=== PATIENT | female | born 1965 | race Caucasian/White ===

== ENCOUNTER → 2018-03-30 14:37 | Outpatient (CLI) | payer OTHER, SELFPAY ==
[2018-03-30 17:02] LABS: Estradiol < 11.0 pg/mL; Free T3 2.9 pg/mL (2.18-3.98); T4 Free Direct 0.81 ng/dL (0.76-1.46); Thyroid Stim Hormone (TSH) 2.77 uIU/mL (0.358-3.74)
[2018-04-03 13:15] LABS: DHEA Sulfate 45.5 ug/dL (41.2-243.7)
== END ==
PROVIDERS: Family Provider Family Medicine; PCP Family Medicine; Visit Provider Specialist
DX: N95.1 Menopausal and female climacteric states (principal); R53.81 Other malaise; E03.8 Other specified hypothyroidism
CPT/HCPCS: 36415; 82627; 82670; 84144; 84403; 84439; 84443; 84481; 82626

== ENCOUNTER → 2018-05-08 15:11 | Outpatient (CLI) | payer OTHER, SELFPAY ==
[2018-05-08 16:13] LABS: Estradiol 17.9 pg/mL
== END ==
PROVIDERS: Family Provider Family Medicine; PCP Family Medicine
DX: N95.1 Menopausal and female climacteric states (principal)
CPT/HCPCS: 36415; 82670; 84144; 84403

== ENCOUNTER 2018-05-14 22:50 | Emergency (ER) | payer OTHER, SELFPAY ==
[2018-05-14 22:51] VITALS: BP 158/85; PULSE 76; RESP 18; TEMP 37.1; O2SAT 97; BMI 34.3
[2018-05-15] MEDS: Tetracaine 0.5% Ophthalmic Bottle 2 DRP RIGHT EYE (00:07)
--- NOTE | 2018-05-15 01:12 | ED.DCSUM_ITS ---
History of Present Illness Chief Complaint: Eye Problem Informant: Patient Onset: Hours - 1.5 [place] Context: Sudden Onset Timing: Continuous Quality: FB sens Location: R eye Current Severity: Severe Maximum Severity: Severe Worsened by: n/a Relieved by: n/a Associated Symptoms: watering, making it a little blurry Narrative: Just had PRK OU about 2 wks ago, fully healed. Prior similar symptoms: No Past Medical History - Allergies and Home Meds Allergies/Adverse Reactions: Allergies ciprofloxacin [From Cipro] Allergy (Verified 05/14/18 22:54) Rash ciprofloxacin HCl [From Cipro] Allergy (Verified 05/14/18 22:54) Rash prochlorperazine edisylate [From Compazine] Allergy (Verified 05/14/18 22:54) Anaphylaxis prochlorperazine maleate [From Compazine] Allergy (Verified 05/14/18 22:54) Anaphylaxis Sulfa (Sulfonamide Antibiotics) Allergy (Verified 05/14/18 22:54) Rash Primary Care Physician: Darwin Feldman DO [Primary Care Provider] - Smoking Status: Never smoker Review of Systems Eyes: Reports: Blurred vision - right - due to watering, - - R eye pain/FB sens. Denies: Diplopia Physical Exam Vital Signs/Narrative: Vital Signs Temp Pulse Resp BP Pulse Ox 05/14/18 22:51 98.8 F 76 18 158/85 H 97 General: Well nourished, Well developed, - - nad Head: Normocephalic, Atraumatic Eyes: Perrl, EOMI, - - Injected right conjunctive. No gross foreign body visible grossly. Eyelid everted, no lesions or foreign bodies. On slit-lamp exam, there was a piece of mucus centrally on the cornea that did not light up with fluorescein dye, and there are no corneal areas of dye uptake. There was intermittently visible a small fiber to the right of the cornea, that was only visible when it was lying against the eye in context of the dye. It was able to be gently removed. There are several meibomian glands that appear slightly inflamed in this area, but there is no hordeolum or significant tenderness. The anterior chamber is deep and quiet, no hyphema or hypopyon. No cell or flare. Skin: Normal color, No rash Neurological: Alert, Oriented x3, Cranial nerves II-XII grossly intact, Normal Strength, Normal Sensation Psychological: Normal affect Diagnostic/Tx/Re-eval - Medical Decision Making A small foreign body was removed, it is unknown if this is what was causing her symptoms or not. Her cornea is otherwise clear and normal-appearing, deep and quiet, without dye uptake. Tetracaine resolved her discomfort temporarily. She was given a couple more drops prior to discharge and advised to follow-up with her surgeon tomorrow if able. Procedures Procedure(s): Foreign body removal right eye ED Disposition - Plan for ED Patient: Disposition: Home or Assisted Living Chief Complaint: Eye Problem Diagnosis: Foreign body of right eye Instructions: ED Foreign Body Cornea Referrals: Darwin Feldman DO [Primary Care Provider] - Lino Cordon MD [STAFF PHYSICIAN] - 1 Day for another exam
[2018-05-15 01:29] VITALS: RESP 18; O2SAT 98
== END 2018-05-15 01:30 | disposition home or self-care (01) ==
PROVIDERS: Emergency Provider Emergency Medicine; Family Provider Family Medicine; PCP Family Medicine
DX: T15.01XA Foreign body in cornea, right eye, initial encounter (principal); X58.XXXA Exposure to other specified factors, initial encounter; Y93.9 Activity, unspecified; Y92.9 Unspecified place or not applicable; Y99.9 Unspecified external cause status
CPT/HCPCS: 99282

== ENCOUNTER → 2018-10-10 07:16 | Outpatient (CLI) | payer OTHER, SELFPAY ==
[2018-10-10 08:05] LABS: Estradiol 23.5 pg/mL
[2018-10-10 08:09] LABS: Progesterone Level 0.08 ng/mL (See Comment)
== END ==
PROVIDERS: Family Provider Family Medicine; PCP Family Medicine
DX: N95.1 Menopausal and female climacteric states (principal)
CPT/HCPCS: 36415; 82670; 84144; 84403

== ENCOUNTER 2020-02-17 09:56 | Emergency (ER) | payer OTHER, SELFPAY ==
[2020-02-17 09:58] VITALS: BP 149/90; PULSE 86; RESP 16; TEMP 36.3; O2SAT 97; BMI 36.7
--- NOTE | 2020-02-17 10:19 | ED.VISSUMM ---
- ER Visit Summary Date of Service: 02/17/20 Chief Complaint: [Left facial swelling] History of Present Illness: The patient is a 54 F presents to the emergency department complaint of left-sided facial swelling that developed yesterday. Patient states she has had similar episodes x4 in the past with stone in the salivary duct. Patient denies any fevers. She denies any dental pain or dental trauma. She is never required any type of intervention other than antibiotics typically clear the issue. Patient has history of high cholesterol and GERD.] Physical Examination: [HEENT-PERRLA, EOMI. Cranial nerves II through XII grossly intact. TMs clear. Mucous membranes moist. No adenopathy. Patient has left-sided facial swelling over the left cheek with some mild tenderness along the cheek and the area of the parotid duct. Patient has no evidence of erythema or facial cellulitis. No dental tenderness on exam. Cardiovascular-regular rate and rhythm without murmur or ectopy Lungs-clear to auscultation, chest wall stable without crepitus or subcu emphysema Abdomen-normoactive bowel sounds, soft, nontender, no rebound or rigidity, no peritoneal signs. Extremities-intact ?4, normal range of motion, normal pulses, atraumatic] Test Results: [None indicated] Emergency Department Course and Treatment: [Patient received Augmentin 875 p.o.] Treatment Plan: [Patient will be treated with Augmentin. She is advised to eat lemon drop candy. Patient will be given referral to ENT for follow-up if symptoms do not improve. Patient advised to return if increased pain, redness, swelling, fever, or condition should worsen anyway.] Disposition: [Discharged home in stable condition] Impression: [Sialoadenitis] This note was generated with [employer] dictation software. It may contain incorrect words, spelling, and punctuation that were not noted in review of the chart prior to signing ED Disposition - Plan for ED Patient: Referrals: Darwin Feldman DO [Primary Care Provider] -
--- NOTE | 2020-02-17 10:21 | ED.DEP ---
ED Disposition - Plan for ED Patient: Instructions: ED PAROTID DUCT OBSTRUCTION Prescriptions: Amox/Clavulanate Tablet [Augmentin Tablet] 875 mg PO Q12H #20 tab Prescription Printed Referrals: Darwin Feldman DO [Primary Care Provider] - Shawn uRff MD [STAFF PHYSICIAN] - 3-5 Days
[2020-02-17] MEDS: Amox/Clavulanate 875 MG Tablet PO (10:44)
[2020-02-17 10:46] VITALS: RESP 17
== END 2020-02-17 10:47 | disposition home or self-care (01) ==
LOC: ED 10:37
PROVIDERS: Emergency Provider Emergency Medicine; PCP Family Medicine
DX: K11.20 Sialoadenitis, unspecified (principal); E78.00 Pure hypercholesterolemia, unspecified; K21.9 Gastro-esophageal reflux disease without esophagitis; Z79.899 Other long term (current) drug therapy
CPT/HCPCS: 99283

== ENCOUNTER 2020-04-10 10:27 | Emergency (ER) | payer OTHER, SELFPAY ==
[2020-04-10 10:28] VITALS: BP 155/60; PULSE 92; RESP 14; TEMP 36.2; O2SAT 98; BMI 34.8
--- NOTE | 2020-04-10 10:43 | ED.VIS.GEN ---
History of Present Illness Chief Complaint: Upper Extremity Injury Informant: Patient Onset: Days Context: Sudden Onset Timing: Continuous Current Severity: Moderate Maximum Severity: Moderate Narrative: Patient is a 54-year-old female is otherwise healthy that presents to the emergency department left shoulder injury. She states on Tuesday, she was walking outdoors on her back deck. She states the stairs were wet. She slipped and fell. She struck her scapular area on the left and elbow which she states jammed everything up into my shoulder. She states that on Tuesday she was mildly sore. Over the past 2 days, however her pain is worsened. She states any range of motion of the shoulder causes pain. She did not strike her head. She denies loss of consciousness. She is otherwise been in her normal state of health. Prior similar symptoms: No Recent Illness/Hospitalization: No Past Medical History - Allergies and Home Meds Allergies/Adverse Reactions: Allergies ciprofloxacin [From Cipro] Allergy (Verified 04/10/20 10:31) Rash ciprofloxacin HCl [From Cipro] Allergy (Verified 04/10/20 10:31) Rash prochlorperazine edisylate [From Compazine] Allergy (Verified 04/10/20 10:31) Anaphylaxis prochlorperazine maleate [From Compazine] Allergy (Verified 04/10/20 10:31) Anaphylaxis Sulfa (Sulfonamide Antibiotics) Allergy (Verified 04/10/20 10:31) Rash Primary Care Physician: Darwin Feldman DO [Primary Care Provider] - Prior records reviewed: Yes Past Medical History: - - Reviewed and noncontributory Surgical History: noncontributory Smoking Status: Never smoker Review of Systems General: Denies: Chills, Fever, Sweats Eyes: Denies: Visual changes - bilaterally, Diplopia ENT: Denies: Rhinorrhea, Sore throat Cardiovascular: Denies: Chest pain, Palpitations Respiratory: Denies: Dyspnea, Cough, Dyspnea on exertion Gastrointestinal: Denies: Abdominal pain, Nausea, Vomiting, Diarrhea, Melena, Hematochezia Genitourinary: Denies: Dysuria, Hematuria, Frequency Musculoskeletal: Reports: Arthralgias, Extremity Pain. Denies: Back pain Skin: Denies: Rash, Wounds Neurological: Denies: Headache, Weakness, Numbness Physical Exam Vital Signs/Narrative: Vital Signs Temp Pulse Resp BP Pulse Ox 04/10/20 10:28 97.2 F L 92 14 155/60 H 98 Inital Vital Signs reviewed: Yes General: Well nourished, Well developed, No Acute Distress Head: Normocephalic, Atraumatic Eyes: Perrl, EOMI ENT: Moist mucous membranes, No rhinorrhea Neck: Supple, Nontender Cardiovascular: Regular rate, Regular rhythm, No murmurs Respiratory: No distress, CTA bilaterally, Chest nontender Abdomen: Soft, Nontender, Nondistended, Normal bowel sounds Back: Nontender, Normal Inspection Extremities: No edema, Tenderness - Tenderness over left shoulder. Pain with abduction and internal rotation. No laxity. Normal pulses. Axillary nerve preserved. Skin: Normal color, No rash Neurological: Alert, Oriented x3, Cranial nerves II-XII grossly intact, Normal Strength, Normal Sensation Psychological: Normal affect, Normal Mood Diagnostic/Tx/Re-eval - Medical Decision Making Patient presents with pain in her left shoulder after fall. She also some pain in her ribs. She is not hypoxic or tachypneic. Plain films were obtained of the ribs and of the shoulder. There is evidence of rib fracture or pneumothorax. The shoulder is well approximated. She does appear to have a linear nondisplaced fracture through the body of the scapula. Patient will be placed in a sling. She will be given a short course of analgesics and outpatient orthopedic follow-up. I did review results with the patient she is comfortable with this plan of care. Impression 1. Mechanical fall 2. Closed left scapular fracture ED Disposition - Plan for ED Patient: Instructions: ED FRACTURE Glen[place] of Scapula, Shoulder Blade or Collarbone Fracture Prescriptions: Hydrocodone Bitart/Apap 5-325 [[place] 5MG-325MG] 1 tab PO Q6H PRN PRN 3 Days #12 tab PRN Reason: Pain Prescription Printed Referrals: Hebert Mejía DO [STAFF PHYSICIAN] -
--- NOTE | 2020-04-10 11:18 | RAD_ITS ---
STUDY: X-RAY - LEFT SHOULDER REASON FOR EXAM: Female, 54 years old. FELL DELISA- LANDED ON LEFT SIDE AND BACK. LATERAL TO MID BACK/RIB/SCAPULA PAIN TECHNIQUE: 4 view(s) of the shoulder. COMPARISON: None. FINDINGS: Normal glenohumeral articulation. Normal acromioclavicular joint. Normal acromion. Nondisplaced fracture through the mid body of the scapula. Normal humeral head and visualized proximal humerus. The soft tissue structures are unremarkable. Normal visualized pulmonary apex. RAD/Shoulder min 2 Views IMPRESSION: Nondisplaced fracture through the mid body of the scapula. Electronically Signed: Charles Yap, at 11:52 EDT , Service support ,
--- NOTE | 2020-04-10 11:18 | RAD_ITS ---
STUDY: X-RAY - UNILATERAL RIBS ( LEFT ) WITH CHEST REASON FOR EXAM: Female, 54 years old. FELL DELISA- LANDED ON LEFT SIDE AND BACK. LATERAL TO MID BACK/RIB/SCAPULA PAIN TECHNIQUE - RIBS: 2 view(s) of the ribs. TECHNIQUE - CHEST: Single PA view of the chest. COMPARISON: None. FINDINGS - RIBS: Normal visualized ribs without a demonstrated fracture. FINDINGS - CHEST: The lungs are clear and expanded. There is no demonstrated pleural abnormality. Normal size heart. Normal mediastinum and tierra. Normal visualized pulmonary arteries. Normal visualized aortic arch and descending thoracic aorta. Normal visualized thoracic spine. Normal visualized ribs, clavicles, and shoulders. There is no demonstrated abnormality of the visualized soft tissue structures of the upper abdomen. RAD/Ribs Uni Min 3V w/PA Chest IMPRESSION: RIBS: Normal x-ray examination of the ribs. CHEST: Normal x-ray examination of the chest. Electronically Signed: Charles Yap, at 11:51 EDT , Service support ,
[2020-04-10 12:15] VITALS: BP 148/87; PULSE 88; RESP 17; O2SAT 98
== END 2020-04-10 12:16 | disposition home or self-care (01) ==
LOC: ED 10:42
PROVIDERS: Emergency Provider Emergency Medicine; PCP Family Medicine
DX: S42.115A Nondisplaced fracture of body of scapula, left shoulder, initial encounter for closed fracture (principal); R07.81 Pleurodynia; W10.9XXA Fall (on) (from) unspecified stairs and steps, initial encounter; Y93.01 Activity, walking, marching and hiking; Y92.008 Other place in unspecified non-institutional (private) residence as the place of occurrence of the external cause; Y99.9 Unspecified external cause status; Z79.899 Other long term (current) drug therapy
CPT/HCPCS: 71101; 73030; 99283

== ENCOUNTER → 2020-10-03 13:24 | Outpatient (CLI) | payer OTHER, SELFPAY | PROVIDERS: PCP Family Medicine; Visit Provider Family Medicine | DX: R30.0 Dysuria (principal) | CPT/HCPCS: 87077; 87086; 87088; 87186 ==

== ENCOUNTER 2021-03-11 09:31 | Observation (INO) | payer BC, OTHER, SELFPAY ==
[2021-03-11] VITALS (8 sets, daily range): BP systolic 118–149; BP diastolic 69–91; PULSE 66–87; RESP 16–18; TEMP 36.6–36.8; O2SAT 95–100; BMI 32.1; BMI 32.3
--- NOTE | 2021-03-11 09:51 | US_ITS ---
STUDY: ABDOMINAL ULTRASOUND - RIGHT UPPER QUADRANT REASON FOR VISIT: Female, 55 years old PAIN-rt sided with nausea TECHNIQUE: Ultrasound evaluation of the right upper quadrant was performed with real-time and static gill-scale imaging. TECHNICAL QUALITY: Adequate. COMPARISON: None. FINDINGS: Liver: The liver is enlarged and measures 19.8 cm. There is normal echogenicity of the liver. The bile ducts are within normal limits. There is hepatic color flow. The direction of portal flow is hepatopetal. There is no demonstrated mass lesion. Gallbladder: There is a contracted gallbladder. The gallbladder wall is thickened and measures 9 mm. There is a positive sonographic Deshpande''s sign. There is a small amount of pericholecystic fluid. There are no gallstones. Findings suggestive of a 3 mm gallbladder polyp. Common Bile Duct (C.B.D.): The common bile duct measures 4 mm. Pancreas: Normal size of the head, body and tail of the pancreas. There is normal echogenicity of the pancreas. There is no demonstrated pancreatic mass or cyst. Right Kidney: Normal size of the right kidney. The right kidney measures 9.9 cm x 5 cm x 4.4 cm. Normal renal cortex. The right cortex measures 1.3 cm. There is no demonstrated renal mass or cyst. There is no right hydronephrosis. US/Gallbladder IMPRESSION: Hepatomegaly. Diffusely thickened gallbladder wall with the mild degree of pericholecystic fluid. Findings suggestive of a gallbladder polyp. Electronically Signed: Charles Yap MD at 11:02 EDT , Service support ,
--- NOTE | 2021-03-11 09:52 | ED.VIS.GI ---
HPI HPI - GI History of Present Illness Chief Complaint: Nausea/Vomiting Informant: patient Abdominal Pain/Flank Pain Onset: Weeks (1) Context: Gradual Onset Timing: Continuous and Waxes and wanes Quality: Aching Location: RUQ Current Severity: Moderate Maximum Severity: Moderate Worsened by: Food (At times) Relieved by: Nothing Nausea/Vomiting/Emesis GI Symptom: Positive for Nausea; Negative for Vomiting Onset: Weeks (1) Diarrhea/Melena/Hematochezia GI Symptom: Negative for Diarrhea, Melena and Hematochezia Associated Symptoms Associated Symptoms: Positive for - ([place] discolored urine for about a week); Negative for Dysuria, Frequency and Urgency Narrative Narrative: Patient has been having mostly nausea and decreased appetite for 1 week or so, with abdominal pain being a less prominent symptom but when it occurs it is in the right upper quadrant and wraps around to the right flank and into the mid back as it is now. She ate a yogurt bar this morning which seemed to flared up. She tried to get into her doctor soon after the onset of the symptoms but was not able to be seen until 2 days ago, she had blood work done and was called about it this morning that her liver enzymes and bilirubin were all elevated and she should come to the emergency department out of concern for gallstones. Patient denies using any alcohol recently. [facility] Medical History Anxiety GERD (gastroesophageal reflux disease) Hyperlipidemia Hypertension Home Medications atorvastatin 10 mg PO DAILY 02/17/20 [History Last Taken Unknown] bupropion HCl 150 mg PO DAILY 02/17/20 [History Last Taken Unknown] buspirone 15 mg PO DAILY 02/17/20 [History Last Taken Unknown] diltiazem HCl 180 mg PO DAILY 02/17/20 [History Last Taken Unknown] fluoxetine 20 mg PO DAILY 02/17/20 [History Last Taken Unknown] albuterol sulfate 2 puff INHALATION Q6H PRN PRN 03/11/21 [History Last Taken Unknown] Allergy/AdvReac Type Severity Reaction Status Date / Time ciprofloxacin [From Cipro] Allergy Rash Verified 03/11/21 09:32 ciprofloxacin HCl Allergy Rash Verified 03/11/21 09:32 [From Cipro] prochlorperazine edisylate Allergy Anaphylaxis Verified 03/11/21 09:32 [From Compazine] prochlorperazine maleate Allergy Anaphylaxis Verified 03/11/21 09:32 [From Compazine] Sulfa (Sulfonamide Allergy Rash Verified 03/11/21 09:32 Antibiotics) no surgical history Social History Smoking Status: Never smoker ROS ROS ED Constitutional Constitutional ED: Denies chills or fever(s) Eyes Eyes: Denies change in vision or diplopia ENT ENT ED: Denies rhinorrhea or sore throat Cardiovascular Cardiovascular: Denies chest pain or palpitations Respiratory/Chest Respiratory/Chest: Denies cough or dyspnea Gastrointestinal Gastrointestinal: Reports as per HPI, abdominal pain and nausea; Denies diarrhea or vomiting Genitourinary Genitourinary ED: Reports as per HPI; Denies dysuria or hematuria Musculoskeletal Musculoskeletal: Reports back pain; Denies neck pain Integumentary Denies abscess or rash Neurologic Neurologic: Denies headache(s), paresthesias or weakness Psychiatric Psychiatric: Denies anxiety or suicidal thoughts EXAM Physical Exam Const Vital Signs: 03/11/21 09:33 03/11/21 11:21 Temperature 97.9 F 98.2 F Temperature Source Temporal Oral Pulse Rate 87 79 Respiratory Rate 17 16 Blood Pressure 118/81 H 134/69 H Blood Pressure Mean 93 90 Pulse Ox 96 97 Oxygen Delivery Method Room Air Room Air Positive well nourished and well developed General Appearance ED: well developed and NAD HEENT Reports moist mucous membranes normocephalic and atraumatic Eyes PERRL and EOMs intact bilaterally General Eye ED: Yes scleral icterus Neck full ROM and supple Resp normal respiratory effort and clear to auscultation bilaterally Cardio regular rate, regular rhythm and no murmurs GI non-distended Auscultation: normoactive bowel sounds Palpation: soft and tender RUQ and Deshpande's sign; Negative for rebound tenderness present Back/Spine no CVA tenderness General Back: other FROM Extremity normal to inspection General Extremety ED: Negative for edema, pulses abnormal or tenderness General Extremity: Negative for edema or pulses abnormal Neuro oriented x3, CN's II-XII intact bilaterally and no sensory deficits noted Sensorium / Orientation: awake and alert Motor Exam: strength 5/5 throughout Skin no rashes or lesions noted, no wounds and no jaundice MDM MDM MDM Narrative Medical decision making narrative: Patient has very elevated liver enzymes as noted below. Lipase is normal. I obtained an ultrasound of the right upper quadrant, there is pericholecystic fluid without any gallstones present. I discussed with Dr. Caldera, he suggest this is more likely to be a pattern of hepatitis rather than a primary gallbladder issue, and further medical work-up and treatment is indicated at this time, not surgery or ERCP. Will discuss with medicine for admission. Lab Data Attestation: I reviewed the patient's lab results. Labs: Laboratory Results - last 24 hr 03/11/21 03/11/21 09:55 09:55 WBC 10.2 RBC 4.34 Hgb 12.7 Hct 36.9 L MCV 85.0 MCH 29.3 MCHC 34.4 RDW Std Deviation 49.7 H RDW Coeff of Kaitlin 16.7 H Plt Count 433 MPV 9.4 Immature Gran % (Auto) 0.600 Neut % (Auto) 74.5 H Lymph % (Auto) 15.9 L [place] % (Auto) 8.0 Eos % (Auto) 0.9 Baso % (Auto) 0.1 Absolute Neuts (auto) 7.6 Absolute Lymphs (auto) 1.62 Nucleated RBC % 0 Sodium 137 Potassium 3.9 Chloride 103 Carbon Dioxide 24.0 Anion Gap 10 BUN 12 Creatinine 0.96 Estim Creat Clear Calc 55.83 Est GFR (MDRD) Af Amer 77 Est GFR (MDRD) Non-Af 64 BUN/Creatinine Ratio 12.6 Glucose 106 Calcium 9.0 Total Bilirubin 5.40 H AST 2077 H ALT 2927 H Alkaline Phosphatase 735 H Total Protein 7.5 Albumin 2.9 L Globulin 4.6 H Albumin/Globulin Ratio 0.6 L Lipase 65 L Radiography Diagnostic Testing: Radiology Impression Gallbladder Ultrasound 03/11/21 09:51 IMPRESSION: Hepatomegaly. Diffusely thickened gallbladder wall with the mild degree of pericholecystic fluid. Findings suggestive of a gallbladder polyp. Electronically Signed: Charles Yap MD at 11:02 EDT , Service support , Discharge Plan Dx/Rx/DC Orders Clinical Impression: Acute hepatitis Disposition Disposition: Acute Care Hospital [facility] Discharge Date/Time: 03/11/21 12:11
[2021-03-11 10:01] LABS: Absolute Lymphocyte Count 1.62 X10^3/uL (0.83-4.51); Absolute Neutrophil Count 7.6 X10^3/uL (2.0-7.7); Basophil# 0.01 X10^3/uL; Basophil% 0.1 % (0-1); Eosinophil# 0.09 X10^3/uL; Eosinophils% 0.9 % (0-5); Hematocrit 36.9 % (37-47); Hemoglobin 12.7 g/dL (12.0-15.0); Lymphocyte # 1.62 X10^3/ul (0.83-4.51); Lymphocyte % 15.9 % (19-41); Mean Corp Hgb Conc 34.4 g/dL (32-36); Mean Corpuscular Hgb 29.3 pg (27.0-32.0); Mean Platelet Vol. 9.4 fl (6.2-12.0); Monocyte# 0.82 X10^3/uL; NRBC Flagged by Analyzer 0 % (0-5); Neutrophil % 74.5 % (47-70); Platelet Count 433 K/mm3 (150-450); RBC Distribution Width CV 16.7 % (11.6-14.6); RBC Distribution Width SD 49.7 fl (35.1-43.9); Red Blood Count 4.34 M/mm3 (4.2-5.4); White Blood Count 10.2 K/mm3 (4.4-11.0)
[2021-03-11] MEDS: Ondansetron 4 MG/2 ML Vial IV ×3 (10:02→21:57)
[2021-03-11] MEDS: Ketorolac 15 MG/ML Vial IV (10:02)
[2021-03-11] MEDS: Morphine 4 MG/ML Syringe IV (10:02)
[2021-03-11 10:41] LABS: ALB/GLOB Ratio 0.6 RATIO (0.9-2.4); AST(SGOT) 2077 U/L (15-37); Alanine Aminotransfer ALT/SGPT 2927 U/L (13-56); Albumin, Serum 2.9 g/dL (3.2-5.0); Alkaline Phosphatase 735 U/L (45-117); Anion Gap 10 (5-15); BUN 12 mg/dL (7-18); BUN/Creat Ratio 12.6 RATIO (10-20); Chloride 103 mmol/L (98-107); Creatinine, Serum 0.96 mg/dL (0.55-1.02); EST Glomerular Filtration Rate 64 mL/min (>60); Est Glom Filt Rate - Afr Amer 77 mL/min (>60); Estimated Creatinine Clearance 55.83 ml/min; Globulin 4.6 g/dL (2.2-4.2); Glucose 106 mg/dL (74-106); Lipase 65 U/L (73-393); Potassium 3.9 mmol/L (3.5-5.1); Protein, Total 7.5 g/dL (6.4-8.2); Sodium Level 137 mmol/L (136-145)
[2021-03-11] MEDS: 0.9% Normal Saline 1,000 ML 125 ML IV ×2 (10:42→20:03)
--- NOTE | 2021-03-11 11:12 | HP.PCM.HOS_ITS ---
HPI - General General Date of Admission: 03/11/21 HPI Narrative NIEVES RAMEY, is a 55 F who presents via the ED on 03/11/2021 with a complaint of abdominal pain, nausea and vomiting. SHe had been having these symptoms for about a week, with associated decreased appetite. Abdominal pain was episodic, and occurred in her right upper quadrant whne it did occur. She saw her PCp 2 days ago, and had bloodwork done. Her PCP called her today that her liver enzymes were markedly elevated, so she was asked to come in to the ED. She does not have a history of any gallbladder problems and does not have a history of any hepatitis or any other liver pathology. She denied any recent alcohol use and denied any fever or chills. She ate a yogurt about this morning which seemed to cause her symptoms to flareup. Review of systems otherwise negative. Vitals in the ED showed blood pressure of 118/81, pulse rate of 87 and respiratory rate of 17 with temperature of 97.9 and she was saturating at 96% on room air. CBC showed hemoglobin of 12.7 with WBC of 10.2 and platelets of 433. Chemistry showed sodium of 137 and creatinine of 0.96. Total bilirubin was 5.4 and AST was 2077, ALT was 2927 and ALP was 735. Lipase was 65. Gallbladder ultrasound showed hepatomegaly and diffusely thickened gallbladder wall with mild degree of pericholecystic fluid and findings suggestive of a gallbladder polyp. Per ED physician, he spoke to general surgery and general surgeon thought that this was an acute hepatitis feature and not an acute gallbladder problem. Patient is therefore being admitted to be managed for acute hepatitis of unclear etiology. [facility] Medical History Anxiety GERD (gastroesophageal reflux disease) Hyperlipidemia Hypertension Home Medications atorvastatin 10 mg PO DAILY 02/17/20 [History Last Taken Unknown] bupropion HCl 150 mg PO DAILY 02/17/20 [History Last Taken Unknown] buspirone 15 mg PO DAILY 02/17/20 [History Last Taken Unknown] diltiazem HCl 180 mg PO DAILY 02/17/20 [History Last Taken Unknown] fluoxetine 20 mg PO DAILY 02/17/20 [History Last Taken Unknown] albuterol sulfate 2 puff INHALATION Q6H PRN PRN 03/11/21 [History Last Taken Unknown] Allergy/AdvReac Type Severity Reaction Status Date / Time ciprofloxacin [From Cipro] Allergy Rash Verified 03/11/21 09:32 ciprofloxacin HCl Allergy Rash Verified 03/11/21 09:32 [From Cipro] prochlorperazine edisylate Allergy Anaphylaxis Verified 03/11/21 09:32 [From Compazine] prochlorperazine maleate Allergy Anaphylaxis Verified 03/11/21 09:32 [From Compazine] Sulfa (Sulfonamide Allergy Rash Verified 03/11/21 09:32 Antibiotics) Social History Smoking Status: Never smoker ROS Constitutional Constitutional: Reports anorexia, fatigue and malaise; Denies change in weight, chills, fever(s) or weakness ENT HEENT: Denies dysphagia, headache(s), nasal congestion or nasal discharge Cardiovascular Cardiovascular: Denies chest pain, edema, lightheadedness, orthopnea, palpitations or rapid heart rate Respiratory/Chest Respiratory/Chest: Denies cough, dyspnea, productive cough, shortness of breath at rest or shortness of breath with exertion Gastrointestinal Gastrointestinal: Reports abdominal pain, nausea and vomiting; Denies coffee ground emesis, constipation, diarrhea, dyspepsia, hematemesis, hematochezia, l oose stools or melena Genitourinary Genitourinary: Denies burning urination, difficulty urinating, dysuria or urinary frequency Musculoskeletal Musculoskeletal: Denies arthralgias or back pain Neurologic Neurologic: Reports abnormal gait; Denies confusion, dizziness, focal weakness, numbness or seizure-like activity Psychiatric Psychiatric: Denies anxiety Endocrine Endocrinology: Denies change in body appearance Hematologic/Lymphatic Hematologic/Lymphatic: Denies anemia Vital Signs Vital Signs Vital Signs: 03/11/21 09:33 Temperature 97.9 F Temperature Source Temporal Pulse Rate 87 Respiratory Rate 17 Blood Pressure 118/81 H Blood Pressure Mean 93 Pulse Ox 96 Oxygen Delivery Method Room Air Weight Weight: 187 lb 2.759 oz Body Mass Index (BMI) 32.1 Physical Exam Const alert, oriented x3 and no apparent distress General Appearance: cooperative HEENT normocephalic, head/scalp atraumatic and hearing grossly normal bilaterally HEENT Narrative: dry mucosa membranes, jaundiced sclera Eyes PERRL and EOMs intact bilaterally Neck no lymphadenopathy Resp normal respiratory effort, no retractions, no use of accessory muscles and clear to auscultation bilaterally Cardio regular rate, regular rhythm, S1 normal heart sound, S2 normal heart sound and no murmurs GI normal to inspection, nondistended, normoactive bowel sounds GI Narrative: RUQ tenderness, no guarding or rebound tenderness. Extremity normal to inspection, full ROM and no clubbing, cyanosis or edema Peripheral Pulses: Yes pulses 2+ throughout Skin no rashes or lesions noted Neuro oriented x3, CN's II-XII intact bilaterally and moves all extremities Sensorium / Orientation: awake and alert Psych affect normal Results Lab / Micro Data Result Diagrams: 03/11/21 09:55 03/11/21 09:55 Labs: Laboratory Results - last 24 hr 03/11/21 09:55: WBC 10.2, RBC 4.34, Hgb 12.7, Hct 36.9 L, MCV 85.0, MCH 29.3, MCHC 34.4, RDW Std Deviation 49.7 H, RDW Coeff of Kaitlin 16.7 H, Plt Count 433, MPV 9.4, Immature Gran % (Auto) 0.600, Neut % (Auto) 74.5 H, Lymph % (Auto) 15.9 L, [place] % (Auto) 8.0, Eos % (Auto) 0.9, Baso % (Auto) 0.1, Absolute Neuts (auto) 7.6, Absolute Lymphs (auto) 1.62, Nucleated RBC % 0 03/11/21 09:55: Sodium 137, Potassium 3.9, Chloride 103, Carbon Dioxide 24.0, Anion Gap 10, BUN 12, Creatinine 0.96, Estim Creat Clear Calc 55.83, Est GFR (MDRD) Af Amer 77, Est GFR (MDRD) Non-Af 64, BUN/Creatinine Ratio 12.6, Glucose 106, Calcium 9.0, Total Bilirubin 5.40 H, AST 2077 H, ALT 2927 H, Alkaline Phosphatase 735 H, Total Protein 7.5, Albumin 2.9 L, Globulin 4.6 H, Albumin/Globulin Ratio 0.6 L, Lipase 65 L Radiology Impression Gallbladder Ultrasound 03/11/21 09:51 IMPRESSION: Hepatomegaly. Diffusely thickened gallbladder wall with the mild degree of pericholecystic fluid. Findings suggestive of a gallbladder polyp. Electronically Signed: Charles Yap MD at 11:02 EDT , Service support , Assessment & Plan Assessment/Plan (1) Acute hepatitis: PLAN: #Acute hepatitis of unclear etiology * hold cardizem and statins as they can cause livery injury * admit to [facility]. * Gallbladder ultrasound showed thickened gallbladder with wall of 9 mm and contracted gallbladder with small polyps. No evidence of stones. * AST and ALT about over 2000 and ALP is over 700. * General surgery has reviewed gallbladder ultrasound and does not think that this is due to an acute gallbladder pathology and thinks this is all due to an acute hepatitis problem * order acute hepatitis panel. Keep n.p.o. for now. Hydrate with IV fluids. * Check Tylenol level. IV Toradol for pain * trend liver enzymes. * Hold off on atorvastatin * IV zofran prn * check INR * #A. fib: On Cardizem. will hold due to its hepatotoxic effect #Depression and anxiety: On buspirone and fluoxetine as well as bupropion DVT prophylaxis: SCDs. CODE STATUS: full code * patient counseled about differences among full code, DNRCC and DNRCCA. patient elects to be full code. Total face to face time 16 mins Charges/Coding Visit Charges Inpatient E&M: 82268 Init Hosp L3 Procedures Hospitalists Procedures: 85471 Advncd Care Plan 30 Min
--- NOTE | 2021-03-11 11:23 | ED.RN ---
pt is still undecided about the covid vaccine. pt is aware that can be gven while she is at the hospital and to let staff know.
[2021-03-11] MEDS: Morphine 2 MG/ML Syringe IV ×2 (13:31→20:05)
[2021-03-11 13:37] LABS: Acetaminophen (Tylenol) Level < 2.0 ug/mL (10.0-30.0)
[2021-03-11 14:02] LABS: Hepatitis B Surface Antibody Non-Reactive; Hepatitis B Surface Antigen Preliminary Reactive (Nonreactive); Hepatitis C Antibody Non-Reactive (Nonreactive)
[2021-03-11 15:08] LABS: International Normalized Ratio 1.1; Prothrombin Time (Protime)PT. 13.9 SECONDS (11.7-14.9)
[2021-03-11 17:29] LABS: HIV - WCH Preliminary Reactive (Nonreactive)
[2021-03-11 20:17] LABS: AST(SGOT) 1998 U/L (15-37); Alanine Aminotransfer ALT/SGPT 2728 U/L (13-56); Albumin, Serum 2.6 g/dL (3.2-5.0); Alkaline Phosphatase 684 U/L (45-117); Bilirubin, Direct 4.28 mg/dL (0.00-0.30); Globulin 4.4 g/dL (2.2-4.2)
[2021-03-12] VITALS (13 sets, daily range): BP systolic 130–141; BP diastolic 77–90; PULSE 64–83; RESP 16–18; TEMP 36.5–37.1; O2SAT 95–98
[2021-03-12] MEDS: Morphine 2 MG/ML Syringe IV ×4 (03:29→20:33)
[2021-03-12] MEDS: 0.9% Normal Saline 1,000 ML 125 ML IV ×3 (03:30→20:33)
[2021-03-12 06:27] LABS: Absolute Lymphocyte Count 1.79 X10^3/uL (0.83-4.51); Absolute Neutrophil Count 4.7 X10^3/uL (2.0-7.7); Basophil# 0.01 X10^3/uL; Basophil% 0.1 % (0-1); Eosinophil# 0.22 X10^3/uL; Eosinophils% 2.9 % (0-5); Hematocrit 35.4 % (37-47); Hemoglobin 11.9 g/dL (12.0-15.0); Lymphocyte # 1.79 X10^3/ul (0.83-4.51); Mean Corp Hgb Conc 33.6 g/dL (32-36); Mean Corpuscular Hgb 28.9 pg (27.0-32.0); Mean Corpuscular Volume 85.9 fL (81-99); Mean Platelet Vol. 10.2 fl (6.2-12.0); Monocyte# 0.75 X10^3/uL; Monocyte% 10.1 % (0-10); NRBC Flagged by Analyzer 0 % (0-5); Neutrophil # 4.67 X10^3/uL (2.7-7.7); Neutrophil % 62.6 % (47-70); Platelet Count 402 K/mm3 (150-450); RBC Distribution Width CV 17.3 % (11.6-14.6); RBC Distribution Width SD 51.2 fl (35.1-43.9); Red Blood Count 4.12 M/mm3 (4.2-5.4); White Blood Count 7.5 K/mm3 (4.4-11.0)
[2021-03-12 07:04] LABS: ALB/GLOB Ratio 0.6 RATIO (0.9-2.4); AST(SGOT) 1859 U/L (15-37); Alanine Aminotransfer ALT/SGPT 2667 U/L (13-56); Albumin, Serum 2.5 g/dL (3.2-5.0); Alkaline Phosphatase 647 U/L (45-117); Anion Gap 6 (5-15); BUN 7 mg/dL (7-18); BUN/Creat Ratio 10.1 RATIO (10-20); Calcium,Total 8.5 mg/dL (8.5-10.1); Chloride 105 mmol/L (98-107); Creatinine, Serum 0.69 mg/dL (0.55-1.02); EST Glomerular Filtration Rate 93 mL/min (>60); Est Glom Filt Rate - Afr Amer 112 mL/min (>60); Estimated Creatinine Clearance 77.68 ml/min; Globulin 4.1 g/dL (2.2-4.2); Glucose 87 mg/dL (74-106); Potassium 3.9 mmol/L (3.5-5.1); Protein, Total 6.6 g/dL (6.4-8.2); Sodium Level 137 mmol/L (136-145)
[2021-03-12 08:08] LABS: Hepatitis A IgM Antibody Negative (Negative)
[2021-03-12] MEDS: 0.9% Saline Lock 10 ML Syringe IV ×3 (08:40→17:14)
[2021-03-12 09:29] LABS: Hepatitis A AB, Total Negative (Negative)
[2021-03-12] MEDS: FLUoxetine 20 MG Capsule PO (09:59)
[2021-03-12] MEDS: busPIRone 15 MG TABLET PO (09:59)
[2021-03-12] MEDS: buPROPion (XL) 150 MG TABLET.XL PO (10:00)
--- NOTE | 2021-03-12 10:25 | CASEMGMT ---
JASMIN URIARTE Assessment: Face to Face with pt for initial transition planning/care coordination assessment. JASMIN URIARTE introduced self and role at [facility], pt voices understanding and consents to assessment. Pt is A/O x4 and answers all questions appropriately at this time. Pt lying in bed in no distress. Care providers, pharmacy, and demographics verified/updated. 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 LNOK: Gen Calvo, brother Living Arrangements: Pt lives in a mobile home with her mother and 4 steps to enter. Pt is I in ADL's and denies concerns at home. Transportation: Pt drives self and denies concerns with transportation. DME/HHC/SNF: Pt denies having any DME in the home, hx of HHC or SNF stays. Pt states no concerns with going home at time of dc. 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 Pt states no further concerns/needs. CM to follow. Advised pt to ask CM if any further question/concerns/needs arise, voices understanding. Pt Goal: Home Plan: Home
--- NOTE | 2021-03-12 10:47 | PN.HOSP_ITS ---
Subjective Subjective Patient seen and examined. She feels less times are getting better and nausea has improved. She has not had any abdominal pain since yesterday. Liver enzymes are started trending downwards. Review of systems otherwise negative. She has remained hemodynamically stable. Objective Data Objective Data Vital Signs: Vital Signs Temp Pulse Resp BP Pulse Ox 97.7 F L 69 17 130/85 H 98 03/12/21 08:19 03/12/21 09:54 03/12/21 08:19 03/12/21 08:19 03/12/21 08:24 Oxygen Delivery Method Room Air Weight: 189 lb 9.561 oz Body Mass Index (BMI) 32.3 Intake & Output: Intake and Output for Last 24 Hours 03/10/21 03/11/21 03/12/21 23:59 23:59 23:59 Intake Total 1700 / 1700 1491.25 / 1491.25 Output Total 600 / 600 1500 / 1500 Balance 1100 / 1100 -8.75 / -8.75 Lab / Micro Data Result Diagrams: 03/12/21 05:50 03/12/21 05:50 Labs: Laboratory Results - last 24 hr 03/11/21 11:35: Acetaminophen < 2.0 L 03/11/21 11:35: Hepatitis A IgM Ab Negative, Hepatitis A Ab Total Negative 03/11/21 11:35: Hep Bs Antigen Preliminary Reactive H, Hep Bs Antibody Non- Reactive, Hepatitis C Antibody Non-Reactive 03/11/21 14:45: HIV 1&2 Antibody Preliminary Reactive H 03/11/21 14:45: PT 13.9, INR 1.1 03/11/21 19:15: Total Bilirubin 5.40 H, Direct Bilirubin 4.28 H, AST 1998 H, ALT 2728 H, Alkaline Phosphatase 684 H, Total Protein 7.0, Albumin 2.6 L, Globulin 4.4 H 03/12/21 05:50: WBC 7.5, RBC 4.12 L, Hgb 11.9 L, Hct 35.4 L, MCV 85.9, MCH 28.9, MCHC 33.6, RDW Std Deviation 51.2 H, RDW Coeff of Kaitlin 17.3 H, Plt Count 402, MPV 10.2, Immature Gran % (Auto) 0.300, Neut % (Auto) 62.6, Lymph % (Auto) 24.0, [place] % (Auto) 10.1 H, Eos % (Auto) 2.9, Baso % (Auto) 0.1, Absolute Neuts (auto) 4.7, Absolute Lymphs (auto) 1.79, Nucleated RBC % 0 03/12/21 05:50: Sodium 137, Potassium 3.9, Chloride 105, Carbon Dioxide 26.0, Anion Gap 6, BUN 7, Creatinine 0.69, Estim Creat Clear Calc 77.68, Est GFR (MDRD) Af Amer 112, Est GFR (MDRD) Non-Af 93, BUN/Creatinine Ratio 10.1, Glucose 87, Calcium 8.5, Total Bilirubin 6.00 H, AST 1859 H, ALT 2667 H, Alkaline Phosphatase 647 H, Total Protein 6.6, Albumin 2.5 L, Globulin 4.1, Albumin/Globulin Ratio 0.6 L Radiography Diagnostic Testing: Radiology Impression Gallbladder Ultrasound 03/11/21 09:51 IMPRESSION: Hepatomegaly. Diffusely thickened gallbladder wall with the mild degree of pericholecystic fluid. Findings suggestive of a gallbladder polyp. Electronically Signed: Charles Yap MD at 11:02 EDT , Service support , Physical Exam Const alert, oriented x3 and no apparent distress General Appearance: cooperative Exam Limitations: no limitations Nutritional Appearance: obese HEENT normocephalic, head/scalp atraumatic and hearing grossly normal bilaterally Head and Scalp: normocephalic Eyes PERRL and EOMs intact bilaterally Eyes Narrative: jaundiced sclera Neck no lymphadenopathy Resp normal respiratory effort, no retractions, no use of accessory muscles and clear to auscultation bilaterally Cardio regular rate, regular rhythm, S1 normal heart sound, S2 normal heart sound and no murmurs GI normal to inspection, nondistended, normoactive bowel sounds, soft to palpation, non-tender and non-distended Extremity normal to inspection, full ROM and no clubbing, cyanosis or edema Peripheral Pulses: Yes pulses 2+ throughout Skin no rashes or lesions noted Neuro oriented x3, CN's II-XII intact bilaterally and moves all extremities Sensorium / Orientation: awake and alert Psych affect normal Assessment & Plan Assessment/Plan (1) Acute hepatitis: PLAN: #Acute viral hepatitis due to hepatitis B infection * hepatitis B surface antigen was positive; IgM is pending. hep C antibody was negative * liver enzymes are trending downwards * tylenol level was <2, and patient's symptoms are improving * continue holding cardizem and atorvastatin * CT scan showed hepatomegaly. * on IV zofran and being hydrated with IVF * advance diet as tolerated * I think the hep B is likely sexually transmitted as patient denies any IV drug use or any history of blood transfusion. #Probable HIV infection * HIV screen done as she was positive for hep B * preliminary HIV screen positive. Confirmatory test pending * ID consulted and patient counseled. She was monogamous with one male partner until they broke up about a month ago. As far as she knows, he was monogamous with her, and she was also monogamous with him. * #A. fib: On Cardizem. will hold due to its hepatotoxic effect #Depression and anxiety: On buspirone and fluoxetine as well as bupropion DVT prophylaxis: SCDs. CODE STATUS: full code * Charges/Coding Visit Charges Inpatient E&M: 89239 Subs Hosp L3
--- NOTE | 2021-03-12 14:30 | CASEMGMT ---
SW met w/pt, offered support in regard to new diagnoses. Pt reports to have supportive family though is not comfortable speaking w/family about both diagnoses. Support given. Pt is open to counseling resources and support group resources. SW did search, was able to find just one support group. SW gave this information to pt along with list of local counseling agencies. Pt thanked SW for the information. SW remains available for support to pt as needed. ROVERTO Vazquez
--- NOTE | 2021-03-12 15:41 | PCM.CONS.GEN ---
Assessment & Plan Assessment/Plan (1) Hepatitis B: (2) Acute hepatitis: (3) HIV (human immunodeficiency virus infection): PLAN: HIV prelim positive with high risk exposure, recent sexual activity with male IVDU. Viral load pending. Will check CD4, genotype, STI screen, lipid panel, quantiferon. Discussed with her natural h/o HIV infection, role of treatment, and prognosis. She is to notify previous partner so he can get tested at health dept. acute hep B - LFT stable, no sign of liver failure, INR normal. Pending hep B DNA, will check BeAg and Ab. Hep A IgG neg. Hep C neg. Will repeat LFT and INR tomorrow, checking iron studies. will follow, thank you. Encouraged her to get covid shot. HPI Consult Data Date of Consult: 03/12/21 HPI Narrative HPI Narrative: NIEVES RAMEY, is a 55 F who presented with 2 weeks nausea, RUQ abd pain. No fever, no night sweats, no cough, no diarrhea, no aches, no lymphadenopathy. No prior h/o blood transfusion, homemade tattoos, no IVDU. No previous hep or HIV testing; has not donated blood or had a . No h/o previous STI. Does report sexual activity for 3 months with male partner who was IVDU (meth) but did not know his hiv status. They broke up 3 weeks ago. She has not gotten covid vaccine. Had covid in June 2020. She came to ED, labs showed transaminitis, hep B and hiv prelim testing (+). Feeling a little better in terms of nausea and abd pain. Full ROS performed and neg except as noted above [facility] Medical History Anxiety GERD (gastroesophageal reflux disease) Hyperlipidemia Hypertension Home Medications atorvastatin 10 mg PO DAILY 02/17/20 [History Last Taken Unknown] bupropion HCl 150 mg PO DAILY 02/17/20 [History Last Taken Unknown] buspirone 15 mg PO DAILY 02/17/20 [History Last Taken Unknown] diltiazem HCl 180 mg PO DAILY 02/17/20 [History Last Taken Unknown] fluoxetine 20 mg PO DAILY 02/17/20 [History Last Taken Unknown] albuterol sulfate 2 puff INHALATION Q6H PRN PRN 03/11/21 [History Last Taken Unknown] Allergy/AdvReac Type Severity Reaction Status Date / Time ciprofloxacin [From Cipro] Allergy Rash Verified 03/11/21 09:32 ciprofloxacin HCl Allergy Rash Verified 03/11/21 09:32 [From Cipro] prochlorperazine edisylate Allergy Anaphylaxis Verified 03/11/21 09:32 [From Compazine] prochlorperazine maleate Allergy Anaphylaxis Verified 03/11/21 09:32 [From Compazine] Sulfa (Sulfonamide Allergy Rash Verified 03/11/21 09:32 Antibiotics) Social History Smoking Status: Never smoker Physical Exam Const alert, oriented x3 and no apparent distress General Appearance: cooperative Exam Limitations: no limitations HEENT normocephalic and head/scalp atraumatic Eyes PERRL and EOMs intact bilaterally Neck supple and No nodes Resp normal air movement and clear to auscultation bilaterally Cardio regular rate, regular rhythm and no murmurs GI normal to inspection, nondistended, normoactive bowel sounds Extremity no clubbing, cyanosis or edema Skin no rashes or lesions noted Neuro CN's II-XII intact bilaterally Lab / Micro Data Result Diagrams: 03/12/21 05:50 03/12/21 05:50 Labs: Laboratory Results - last 24 hr 03/11/21 11:35: Hepatitis A IgM Ab Negative, Hepatitis A Ab Total Negative 03/11/21 14:45: HIV 1&2 Antibody Preliminary Reactive H 03/11/21 19:15: Total Bilirubin 5.40 H, Direct Bilirubin 4.28 H, AST 1998 H, ALT 2728 H, Alkaline Phosphatase 684 H, Total Protein 7.0, Albumin 2.6 L, Globulin 4.4 H 03/12/21 05:50: WBC 7.5, RBC 4.12 L, Hgb 11.9 L, Hct 35.4 L, MCV 85.9, MCH 28.9, MCHC 33.6, RDW Std Deviation 51.2 H, RDW Coeff of Kaitlin 17.3 H, Plt Count 402, MPV 10.2, Immature Gran % (Auto) 0.300, Neut % (Auto) 62.6, Lymph % (Auto) 24.0, [place] % (Auto) 10.1 H, Eos % (Auto) 2.9, Baso % (Auto) 0.1, Absolute Neuts (auto) 4.7, Absolute Lymphs (auto) 1.79, Nucleated RBC % 0 03/12/21 05:50: Sodium 137, Potassium 3.9, Chloride 105, Carbon Dioxide 26.0, Anion Gap 6, BUN 7, Creatinine 0.69, Estim Creat Clear Calc 77.68, Est GFR (MDRD) Af Amer 112, Est GFR (MDRD) Non-Af 93, BUN/Creatinine Ratio 10.1, Glucose 87, Calcium 8.5, Total Bilirubin 6.00 H, AST 1859 H, ALT 2667 H, Alkaline Phosphatase 647 H, Total Protein 6.6, Albumin 2.5 L, Globulin 4.1, Albumin/Globulin Ratio 0.6 L
--- NOTE | 2021-03-12 16:08 | NURSING ---
This RN reviewed SN charting
[2021-03-12] MEDS: Ondansetron 4 MG/2 ML Vial IV (17:14)
[2021-03-13] VITALS (10 sets, daily range): BP systolic 138–162; BP diastolic 80–94; PULSE 72–94; RESP 16–18; TEMP 36.4–36.9; O2SAT 96–99
[2021-03-13] MEDS: Ondansetron 4 MG/2 ML Vial IV ×3 (01:14→19:14)
[2021-03-13] MEDS: Famotidine 20 MG Tablet 40 MG PO ×3 (02:15→20:51)
[2021-03-13] MEDS: 0.9% Normal Saline 1,000 ML 125 ML IV ×3 (02:15→18:15)
[2021-03-13 07:25] LABS: Absolute Lymphocyte Count 1.46 X10^3/uL (0.83-4.51); Absolute Neutrophil Count 6.6 X10^3/uL (2.0-7.7); Basophil# 0.01 X10^3/uL; Basophil% 0.1 % (0-1); Eosinophil# 0.08 X10^3/uL; Eosinophils% 0.9 % (0-5); Hematocrit 36.6 % (37-47); Hemoglobin 12.3 g/dL (12.0-15.0); Lymphocyte # 1.46 X10^3/ul (0.83-4.51); Lymphocyte % 16.4 % (19-41); Mean Corp Hgb Conc 33.6 g/dL (32-36); Mean Corpuscular Hgb 28.9 pg (27.0-32.0); Mean Corpuscular Volume 86.1 fL (81-99); Monocyte# 0.73 X10^3/uL; Monocyte% 8.2 % (0-10); NRBC Flagged by Analyzer 0 % (0-5); Neutrophil # 6.55 X10^3/uL (2.7-7.7); Neutrophil % 73.8 % (47-70); Platelet Count 456 K/mm3 (150-450); RBC Distribution Width CV 17.8 % (11.6-14.6); RBC Distribution Width SD 52.5 fl (35.1-43.9); Red Blood Count 4.25 M/mm3 (4.2-5.4); White Blood Count 8.9 K/mm3 (4.4-11.0)
[2021-03-13 07:37] LABS: International Normalized Ratio 1.1
[2021-03-13 08:12] LABS: ALB/GLOB Ratio 0.6 RATIO (0.9-2.4); AST(SGOT) 1950 U/L (15-37); Alanine Aminotransfer ALT/SGPT 2705 U/L (13-56); Albumin, Serum 2.6 g/dL (3.2-5.0); Alkaline Phosphatase 669 U/L (45-117); Anion Gap 7 (5-15); BUN 8 mg/dL (7-18); BUN/Creat Ratio 12.8 RATIO (10-20); Bilirubin, Direct 5.97 mg/dL (0.00-0.30); Calcium,Total 8.5 mg/dL (8.5-10.1); Chloride 105 mmol/L (98-107); Cholesterol 344 mg/dL (200); Creatinine, Serum 0.62 mg/dL (0.55-1.02); EST Glomerular Filtration Rate 104 mL/min (>60); Est Glom Filt Rate - Afr Amer 126 mL/min (>60); Estimated Creatinine Clearance 86.45 ml/min; Ferritin 8075 ng/mL (8-252); Globulin 4.1 g/dL (2.2-4.2); Glucose 101 mg/dL (74-106); High Density Lipoprotein 10 mg/dL; Iron 111 ug/dL (50-170); Iron Binding Capacity,Total 317 ug/dL (250-450); Potassium 3.6 mmol/L (3.5-5.1); Protein, Total 6.7 g/dL (6.4-8.2); Sodium Level 136 mmol/L (136-145); Triglycerides 243 mg/dL; Very Low Density Lipoprotein 49 mg/dL (5-40)
[2021-03-13 08:52] LABS: Syphilis Antibodies Non-reactive
[2021-03-13] MEDS: busPIRone 15 MG TABLET PO (10:10)
[2021-03-13] MEDS: FLUoxetine 20 MG Capsule PO (10:10)
[2021-03-13] MEDS: buPROPion (XL) 150 MG TABLET.XL PO (10:10)
[2021-03-13 11:19] LABS: Chlamydia Trachomatis by PCR Negative (Negative); Neisserai gonorrhoeae by PCR Negative (Negative); Probe Check PASS; Sample Adequacy Control PASS; Specimen Processing Control PASS
--- NOTE | 2021-03-13 11:37 | PN.HOSP_ITS ---
Subjective Subjective Patient seen and examined. She still complains of some nausea but denies any vomiting. She denies any abdominal pain she thinks she is starting to feel better. Review of systems otherwise negative. Objective Data Objective Data Vital Signs: Vital Signs Temp Pulse Resp BP Pulse Ox 97.5 F L 84 16 162/94 H 96 03/13/21 08:36 03/13/21 09:36 03/13/21 08:36 03/13/21 08:36 03/13/21 08:36 Oxygen Delivery Method Room Air Weight: 189 lb 9.561 oz Body Mass Index (BMI) 32.3 Intake & Output: Intake and Output for Last 24 Hours 03/11/21 03/12/21 03/13/21 23:59 23:59 23:59 Intake Total 1700 / 1700 3422.50 / 3422.50 2302.08 / 2302.08 Output Total 600 / 600 1800 / 1800 1100 / 1100 Balance 1100 / 1100 1622.50 / 1622.50 1202.08 / 1202.08 Lab / Micro Data Result Diagrams: 03/13/21 07:05 03/13/21 07:05 Labs: Laboratory Results - last 24 hr 03/13/21 01:15: Chlam trachomat DNA PCR Negative, N.gonorrhoeae DNA (PCR) Negative 03/13/21 07:05: Sodium 136, Potassium 3.6, Chloride 105, Carbon Dioxide 24.0, Anion Gap 7, BUN 8, Creatinine 0.62, Estim Creat Clear Calc 86.45, Est GFR (MDRD) Af Amer 126, Est GFR (MDRD) Non-Af 104, BUN/Creatinine Ratio 12.8, Glucose 101, Calcium 8.5, Iron 111, TIBC 317, Iron Saturation 35.0, Ferritin 8075 H, Total Bilirubin 7.30 H, Direct Bilirubin 5.97 H, AST 1950 H, ALT 2705 H, Alkaline Phosphatase 669 H, Total Protein 6.7, Albumin 2.6 L, Globulin 4.1, Albumin/Globulin Ratio 0.6 L, Triglycerides 243 H, Cholesterol 344 H, LDL Cholesterol 285 H, VLDL Cholesterol 49 H, HDL Cholesterol 10 L 03/13/21 07:05: PT 14.0, INR 1.1 03/13/21 07:05: Syphilis Total Ab Non-reactive 08/13/21 07:05: WBC 8.9, RBC 4.25, Hgb 12.3, Hct 36.6 L, MCV 86.1, MCH 28.9, MCHC 33.6, RDW Std Deviation 52.5 H, RDW Coeff of Kaitlin 17.8 H, Plt Count 456 H, MPV 10.0, Immature Gran % (Auto) 0.600, Neut % (Auto) 73.8 H, Lymph % (Auto) 16.4 L, [place] % (Auto) 8.2, Eos % (Auto) 0.9, Baso % (Auto) 0.1, Absolute Neuts (auto) 6.6, Absolute Lymphs (auto) 1.46, Nucleated RBC % 0 Physical Exam Const alert, oriented x3 and no apparent distress Exam Limitations: no limitations HEENT head/scalp atraumatic and moist oral mucous membranes Head and Scalp: normocephalic Eyes PERRL, EOMs intact bilaterally and conjunctivae normal Eyes Narrative: jaundiced sclera Neck no lymphadenopathy Resp normal respiratory effort, no retractions, no use of accessory muscles and clear to auscultation bilaterally Cardio regular rate, regular rhythm, S1 normal heart sound and S2 normal heart sound GI normal to inspection, nondistended, normoactive bowel sounds, soft to palpation, non-tender and non-distended Extremity normal to inspection, full ROM and no clubbing, cyanosis or edema Peripheral Pulses: Yes pulses 2+ throughout Skin no rashes or lesions noted Skin Narrative: has tinge of jaundice to skin. Neuro oriented x3, CN's II-XII intact bilaterally and moves all extremities Sensorium / Orientation: awake and alert Psych affect normal Assessment & Plan Assessment/Plan (1) HIV (human immunodeficiency virus infection): (2) Hepatitis B: (3) Acute hepatitis: PLAN: #Acute viral hepatitis due to hepatitis B infection * hepatitis B surface antigen was positive; IgM is pending. hep C antibody was negative * liver enzymes have trended upwards again today * INR is 1.1 * cardizem and atorvastatin on hold * continue gentle hydration. Bilirubin is up to 7.3 and direct bilirubin is 5.97, and AST and ALT have also trended up. * tylenol level was <2, * continue holding cardizem and atorvastatin * CT scan showed hepatomegaly. * on IV zofran and being hydrated with IVF * advance diet as tolerated * trend liver enzymes for today; there is no evidence of liver failure, as INR is still 1.1 today. If enzymes keep trending upwards, will consider transferring to tertiary care center #HIV infection * HIV screen done as she was positive for hep B * preliminary HIV screen positive. Confirmatory test pending * ID on board * CD 4 count and HIV viral load pending * STI screen done and negative for syphilis * #A. fib: On Cardizem which is oon hold due to its hepatotoxic effect #Depression and anxiety: On buspirone and fluoxetine as well as bupropion DVT prophylaxis: SCDs. CODE STATUS: full code * Charges/Coding Visit Charges Inpatient E&M: 42331 Subs Hosp L3
[2021-03-13 12:44] LABS: Hepatitis B Core AB IgM Positive (Negative)
[2021-03-13] MEDS: Morphine 2 MG/ML Syringe IV (12:49)
[2021-03-13] MEDS: 0.9% Saline Lock 10 ML Syringe IV ×2 (12:49→19:14)
--- NOTE | 2021-03-13 14:56 | PCM.PN.ID ---
Physical Exam Narrative Feeling ok, no fever, no abd pain Const alert General Appearance: cooperative Resp normal air movement and clear to auscultation bilaterally Cardio regular rate and regular rhythm GI normal to inspection, nondistended, normoactive bowel sounds Skin no rashes or lesions noted ID ID: Route of nutrition/ use of supplements: [] Nutritional Intake: [] IV Site: [] [place] Catheter: [] Assessment & Plan Assessment/Plan (1) Hepatitis B: (2) Acute hepatitis: (3) HIV (human immunodeficiency virus infection): PLAN: HIV prelim positive with high risk exposure, recent sexual activity with male IVDU. Viral load pending. Checking CD4, genotype, STI screen, lipid panel, quantiferon. She is to notify previous partner so he can get tested at health dept. With acute hep B and high suspicion for true hiv infection, will start raltegravir/truvada. Plan on discharge with ongoing biktarvy one tab qhs and ID followup in one month. acute hep B - ALT/AST stable, no sign of liver failure, INR normal. Pending hep B DNA, checking BeAg and Ab. Hep A IgG neg. Hep C neg. will follow, d/w Dr. Kohli. Have encouraged her to get covid shot.
[2021-03-13 17:36] LABS: ALB/GLOB Ratio 0.6 RATIO (0.9-2.4); AST(SGOT) 2077 U/L (15-37); Alanine Aminotransfer ALT/SGPT 2735 U/L (13-56); Albumin, Serum 2.7 g/dL (3.2-5.0); Alkaline Phosphatase 684 U/L (45-117); Anion Gap 2 (5-15); BUN 8 mg/dL (7-18); BUN/Creat Ratio 11.5 RATIO (10-20); Calcium,Total 8.6 mg/dL (8.5-10.1); Chloride 109 mmol/L (98-107); EST Glomerular Filtration Rate 92 mL/min (>60); Est Glom Filt Rate - Afr Amer 112 mL/min (>60); Estimated Creatinine Clearance 76.57 ml/min; Globulin 4.6 g/dL (2.2-4.2); Glucose 95 mg/dL (74-106); Protein, Total 7.3 g/dL (6.4-8.2); Sodium Level 139 mmol/L (136-145)
[2021-03-13] MEDS: RALTEGRAVIR POTASSIUM 400 MG TABLET PO (20:51)
[2021-03-13] MEDS: EMTRICITABINE/TENOFOVIR 1 TABLET TABLET PO (20:56)
[2021-03-13] MEDS: traMADol 50 MG Tablet PO (22:28)
[2021-03-14] VITALS (8 sets, daily range): BP systolic 143–159; BP diastolic 85–101; PULSE 74–84; RESP 16–18; TEMP 36.6–37; O2SAT 97–99
[2021-03-14] MEDS: 0.9% Normal Saline 1,000 ML 125 ML IV ×3 (02:13→20:48)
[2021-03-14] MEDS: Morphine 2 MG/ML Syringe IV (02:32)
[2021-03-14 06:32] LABS: Absolute Lymphocyte Count 1.65 X10^3/uL (0.83-4.51); Absolute Neutrophil Count 6.3 X10^3/uL (2.0-7.7); Basophil# 0.01 X10^3/uL; Basophil% 0.1 % (0-1); Eosinophil# 0.16 X10^3/uL; Eosinophils% 1.8 % (0-5); Hematocrit 34.5 % (37-47); Hemoglobin 11.6 g/dL (12.0-15.0); Lymphocyte # 1.65 X10^3/ul (0.83-4.51); Lymphocyte % 18.4 % (19-41); Mean Corp Hgb Conc 33.6 g/dL (32-36); Mean Corpuscular Hgb 28.9 pg (27.0-32.0); Mean Platelet Vol. 10.3 fl (6.2-12.0); Monocyte# 0.79 X10^3/uL; Monocyte% 8.8 % (0-10); NRBC Flagged by Analyzer 0 % (0-5); Neutrophil # 6.32 X10^3/uL (2.7-7.7); Neutrophil % 70.5 % (47-70); Platelet Count 432 K/mm3 (150-450); RBC Distribution Width CV 18.2 % (11.6-14.6); RBC Distribution Width SD 54.5 fl (35.1-43.9); Red Blood Count 4.01 M/mm3 (4.2-5.4)
[2021-03-14 06:39] LABS: International Normalized Ratio 1.2; Prothrombin Time (Protime)PT. 14.3 SECONDS (11.7-14.9)
[2021-03-14 07:00] LABS: ALB/GLOB Ratio 0.6 RATIO (0.9-2.4); AST(SGOT) 1950 U/L (15-37); Alanine Aminotransfer ALT/SGPT 2405 U/L (13-56); Albumin, Serum 2.5 g/dL (3.2-5.0); Alkaline Phosphatase 614 U/L (45-117); Anion Gap 5 (5-15); BUN 5 mg/dL (7-18); Calcium,Total 8.3 mg/dL (8.5-10.1); Chloride 107 mmol/L (98-107); Creatinine, Serum 0.63 mg/dL (0.55-1.02); EST Glomerular Filtration Rate 104 mL/min (>60); Est Glom Filt Rate - Afr Amer 126 mL/min (>60); Estimated Creatinine Clearance 85.08 ml/min; Globulin 3.9 g/dL (2.2-4.2); Glucose 95 mg/dL (74-106); Potassium 3.8 mmol/L (3.5-5.1); Protein, Total 6.4 g/dL (6.4-8.2); Sodium Level 138 mmol/L (136-145)
[2021-03-14] MEDS: buPROPion (XL) 150 MG TABLET.XL PO (09:51)
[2021-03-14] MEDS: FLUoxetine 20 MG Capsule PO (09:51)
[2021-03-14] MEDS: Famotidine 20 MG Tablet 40 MG PO ×2 (09:51→22:05)
[2021-03-14] MEDS: RALTEGRAVIR POTASSIUM 400 MG TABLET PO ×2 (09:52→22:05)
[2021-03-14] MEDS: busPIRone 15 MG TABLET PO (09:52)
[2021-03-14] MEDS: traMADol 50 MG Tablet PO ×2 (10:03→22:05)
[2021-03-14] MEDS: Metoprolol(XL)Succ 25 MG Tablet PO (12:40)
--- NOTE | 2021-03-14 13:07 | PN.HOSP_ITS ---
Subjective Subjective Patient seen and examined. She feels much better today and has no complaints. Her nausea has improved markedly and review of symptoms otherwise negative. She is now tolerating an oral diet. She has remained hemodynamically stable. Liver enzymes have also started trending down though total bilirubin remains at 7.3. Objective Data Objective Data Vital Signs: Vital Signs Temp Pulse Resp BP Pulse Ox 97.9 F 80 18 143/93 H 99 03/14/21 12:41 03/14/21 12:41 03/14/21 12:41 03/14/21 12:41 03/14/21 12:41 Oxygen Delivery Method Room Air Weight: 189 lb 9.561 oz Body Mass Index (BMI) 32.3 Intake & Output: Intake and Output for Last 24 Hours 03/12/21 03/13/21 03/14/21 23:59 23:59 23:59 Intake Total 3422.50 / 3422.50 4042.08 / 4342.08 2652.08 / 2652.08 Output Total 1800 / 1800 1100 / 1100 Balance 1622.50 / 1622.50 2942.08 / 3242.08 2652.08 / 2652.08 Medical Nutrition Assessment Dietitian: Nutrition Therapy Diagnosis Start: 03/13/21 15:21 Freq: Status: Active Protocol: Document 03/13/21 15:34 RENETTA (Rec: 03/13/21 15:34 RENETTA [id number]) Nutrition Malnutrition Evidence of Malnutrition Exists No Intake Problem Inadequate Oral Intake Etiology related to nausea and abd pain x 2 wks prior to adm Signs/Symptoms as evidenced by pt self report of only so so appetite. Status Active Problem Clinical Problem Altered Nutrient-Related Laboratory Values Etiology related to liver/cardiac dysfunction Signs/Symptoms as evidenced by AST 1950, ALT 2705, Alk phos 669, leonel 344, LDL 285, VLDL 49, HDL 10 Status Active Problem Recommendation Dietitian Recommendations/Changes Will change diet to Cardiac Will provide diet education prior to d/c as warranted by pt. Lab / Micro Data Result Diagrams: 03/14/21 05:30 03/14/21 05:30 Labs: Laboratory Results - last 24 hr 03/13/21 15:55: Sodium 139, Potassium 4.0, Chloride 109 H, Carbon Dioxide 28.0, Anion Gap 2 L, BUN 8, Creatinine 0.70, Estim Creat Clear Calc 76.57, Est GFR (MDRD) Af Amer 112, Est GFR (MDRD) Non-Af 92, BUN/Creatinine Ratio 11.5, Glucose 95, Calcium 8.6, Total Bilirubin 7.30 H, AST 2077 H, ALT 2735 H, Alkaline Phosphatase 684 H, Total Protein 7.3, Albumin 2.7 L, Globulin 4.6 H, Albumin/G lobulin Ratio 0.6 L 03/14/21 05:30: WBC 9.0, RBC 4.01 L, Hgb 11.6 L, Hct 34.5 L, MCV 86.0, MCH 28.9, MCHC 33.6, RDW Std Deviation 54.5 H, RDW Coeff of Kaitlin 18.2 H, Plt Count 432, MPV 10.3, Immature Gran % (Auto) 0.400, Neut % (Auto) 70.5 H, Lymph % (Auto) 18.4 L, [place] % (Auto) 8.8, Eos % (Auto) 1.8, Baso % (Auto) 0.1, Absolute Neuts (auto) 6.3, Absolute Lymphs (auto) 1.65, Nucleated RBC % 0 03/14/21 05:30: Sodium 138, Potassium 3.8, Chloride 107, Carbon Dioxide 26.0, Anion Gap 5, BUN 5 L, Creatinine 0.63, Estim Creat Clear Calc 85.08, Est GFR (MDRD) Af Amer 126, Est GFR (MDRD) Non-Af 104, BUN/Creatinine Ratio 8.0 L, Glucose 95, Calcium 8.3 L, Total Bilirubin 7.30 H, AST 1950 H, ALT 2405 H, Alkaline Phosphatase 614 H, Total Protein 6.4, Albumin 2.5 L, Globulin 3.9, Albumin/Globulin Ratio 0.6 L 03/14/21 05:30: PT 14.3, INR 1.2 Physical Exam Const alert, oriented x3 and no apparent distress General Appearance: cooperative Exam Limitations: no limitations Nutritional Appearance: obese HEENT normocephalic, head/scalp atraumatic, hearing grossly normal bilaterally and moist oral mucous membranes Head and Scalp: normocephalic Eyes PERRL, EOMs intact bilaterally and conjunctivae normal Eyes Narrative: jaundiced sclera, which is improving Neck no lymphadenopathy Resp normal respiratory effort, no retractions, no use of accessory muscles and clear to auscultation bilaterally Cardio regular rate, regular rhythm, S1 normal heart sound, S2 normal heart sound and no murmurs GI normal to inspection, nondistended, normoactive bowel sounds, soft to palpation, non-tender and non-distended Extremity normal to inspection, full ROM and no clubbing, cyanosis or edema Peripheral Pulses: Yes pulses 2+ throughout Skin no rashes or lesions noted Skin Narrative: has tinge of jaundice to skin. Neuro oriented x3, CN's II-XII intact bilaterally and moves all extremities Sensorium / Orientation: awake and alert Psych affect normal Assessment & Plan Assessment/Plan (1) HIV (human immunodeficiency virus infection): (2) Hepatitis B: (3) Acute hepatitis: PLAN: #Acute viral hepatitis due to hepatitis B infection * hepatitis B surface antigen was positive; IgM is pending. hep C antibody was negative * patient is feeling much better, and liver enzymes are trending downwards slightly. Total bilirubin remains at 7.3. * INR is 1.2. * cardizem and atorvastatin remain on hold. * hep B e-antigen and viral load pedning * #HIV infection * preliminary HIV screen positive. Confirmatory test pending * ID on board * CD 4 count and HIV viral load pending * STI screen done and negative for syphilis, chlamydia and Neisserria gonorrhoea * HIV viral load and CD4 count pending * started on tenofovir/emtricitabine one tablet qhs and reltegravir 400mg bid * #A. fib: On Cardizem which is on hold due to its hepatotoxic effect. Started on PO metoprolol 25mg daily #Depression and anxiety: On buspirone and fluoxetine as well as bupropion DVT prophylaxis: SCDs. CODE STATUS: full code * Disposition: for likely DC home tomorrow if liver enzymes continue downward trend. Charges/Coding Visit Charges Inpatient E&M: 58833 Subs Hosp L2
[2021-03-14 14:08] LABS: Hepatitis Be Ag Positive (Negative)
[2021-03-14] MEDS: 0.9% Saline Lock 10 ML Syringe IV (16:10)
[2021-03-14] MEDS: Ondansetron 4 MG/2 ML Vial IV (16:10)
[2021-03-14] MEDS: EMTRICITABINE/TENOFOVIR 1 TABLET TABLET PO (22:08)
[2021-03-15] MEDS: Ondansetron 4 MG/2 ML Vial IV (01:58)
[2021-03-15 02:00] VITALS: BP 162/96; PULSE 77; RESP 16; TEMP 36.9; O2SAT 96
[2021-03-15] MEDS: 0.9% Normal Saline 1,000 ML 125 ML IV (04:10)
[2021-03-15 07:00] LABS: Absolute Lymphocyte Count 1.36 X10^3/uL (0.83-4.51); Absolute Neutrophil Count 7.1 X10^3/uL (2.0-7.7); Basophil# 0.01 X10^3/uL; Basophil% 0.1 % (0-1); Eosinophil# 0.14 X10^3/uL; Eosinophils% 1.5 % (0-5); Hematocrit 35.4 % (37-47); Hemoglobin 12.2 g/dL (12.0-15.0); Lymphocyte # 1.36 X10^3/ul (0.83-4.51); Lymphocyte % 14.2 % (19-41); Mean Corp Hgb Conc 34.5 g/dL (32-36); Mean Corpuscular Hgb 29.2 pg (27.0-32.0); Mean Corpuscular Volume 84.7 fL (81-99); Mean Platelet Vol. 10.3 fl (6.2-12.0); Monocyte# 0.89 X10^3/uL; Monocyte% 9.3 % (0-10); NRBC Flagged by Analyzer 0 % (0-5); Neutrophil # 7.14 X10^3/uL (2.7-7.7); Neutrophil % 74.4 % (47-70); Platelet Count 478 K/mm3 (150-450); RBC Distribution Width CV 18.7 % (11.6-14.6); RBC Distribution Width SD 54.4 fl (35.1-43.9); Red Blood Count 4.18 M/mm3 (4.2-5.4); White Blood Count 9.6 K/mm3 (4.4-11.0)
[2021-03-15 07:23] LABS: ALB/GLOB Ratio 0.6 RATIO (0.9-2.4); AST(SGOT) 2087 U/L (15-37); Alanine Aminotransfer ALT/SGPT 2636 U/L (13-56); Albumin, Serum 2.5 g/dL (3.2-5.0); Alkaline Phosphatase 629 U/L (45-117); Anion Gap 7 (5-15); BUN 6 mg/dL (7-18); BUN/Creat Ratio 9.5 RATIO (10-20); Calcium,Total 8.4 mg/dL (8.5-10.1); Chloride 105 mmol/L (98-107); Creatinine, Serum 0.63 mg/dL (0.55-1.02); EST Glomerular Filtration Rate 103 mL/min (>60); Est Glom Filt Rate - Afr Amer 125 mL/min (>60); Estimated Creatinine Clearance 85.08 ml/min; Globulin 4.3 g/dL (2.2-4.2); Glucose 90 mg/dL (74-106); Potassium 3.7 mmol/L (3.5-5.1); Protein, Total 6.8 g/dL (6.4-8.2); Sodium Level 137 mmol/L (136-145)
[2021-03-15 07:59] LABS: Hepatitis Be Ab Positive (Negative)
[2021-03-15 08:15] VITALS: BP 163/90; PULSE 80; RESP 16; TEMP 36.2; O2SAT 97
[2021-03-15] MEDS: buPROPion (XL) 150 MG TABLET.XL PO (10:00)
[2021-03-15] MEDS: FLUoxetine 20 MG Capsule PO (10:00)
[2021-03-15] MEDS: RALTEGRAVIR POTASSIUM 400 MG TABLET PO ×2 (10:00→21:12)
[2021-03-15] MEDS: Famotidine 20 MG Tablet 40 MG PO ×2 (10:00→21:12)
[2021-03-15] MEDS: busPIRone 15 MG TABLET PO (10:01)
[2021-03-15 10:04] VITALS: PULSE 80
[2021-03-15] MEDS: Metoprolol(XL)Succ 25 MG Tablet PO (10:04)
--- NOTE | 2021-03-15 11:05 | PCM.DC.SUM ---
Providers Date of Admission: 03/11/21 Primary Care Physician: Dr. Darwin Feldman, Consultations 03/12/21 07:13 Consult: Infectious Disease Routine Consulting Provider: Jacky Ruiz Reason for Consult: HIV infection and hepatitis B infection EMERGENT Consult: No MD Notified: Yes Date Notified: 03/12/21 Time Notified: 10:11 Method of Notification: Verbal Reason For Visit: ACUTE HEPATITIS Diagnosis Discharge Diagnosis (1) HIV (human immunodeficiency virus infection): Status: Acute Code(s): B20 - Human immunodeficiency virus [HIV] disease (2) Hepatitis B: Status: Acute Code(s): B19.10 - Unspecified viral hepatitis B without hepatic coma (3) Acute hepatitis: Status: Acute Code(s): B17.9 - Acute viral hepatitis, unspecified Medications at Discharge Home Medications bupropion HCl 150 mg PO DAILY 02/17/20 buspirone 15 mg PO DAILY 02/17/20 fluoxetine 20 mg PO DAILY 02/17/20 albuterol sulfate 2 puff INHALATION Q6H PRN PRN 03/11/21 emtricitabine-tenofovir (TDF) [Truvada] 1 tab PO QHS #30 tab 03/15/21 metoprolol succinate 25 mg PO DAILY #30 tab 03/15/21 raltegravir [Isentress] 400 mg PO BID #60 tab 03/15/21 Hospital Course Operations None Procedures None Summary of Care Provided Minutes Spent on Discharge: 50 Hospital Course: NIEVES RAMEY, is a 55 F who presented via the ED on 03/11/2021 with a complaint of abdominal pain, nausea and vomiting. SHe had been having these symptoms for about a week, with associated decreased appetite. Abdominal pain was episodic, and occurred in her right upper quadrant whne it did occur. She saw her PCp 2 days ago, and had bloodwork done. Her PCP called her today that her liver enzymes were markedly elevated, so she was asked to come in to the ED. She does not have a history of any gallbladder problems and does not have a history of any hepatitis or any other liver pathology. She denied any recent alcohol use and denied any fever or chills. She ate a yogurt about this morning which seemed to cause her symptoms to flareup. Review of systems otherwise negative. Vitals in the ED showed blood pressure of 118/81, pulse rate of 87 and respiratory rate of 17 with temperature of 97.9 and she was saturating at 96% on room air. CBC showed hemoglobin of 12.7 with WBC of 10.2 and platelets of 433. Chemistry showed sodium of 137 and creatinine of 0.96. Total bilirubin was 5.4 and AST was 2077, ALT was 2927 and ALP was 735. Lipase was 65. Gallbladder ultrasound showed hepatomegaly and diffusely thickened gallbladder wall with mild degree of pericholecystic fluid and findings suggestive of a gallbladder polyp. Per ED physician, he spoke to general surgery and general surgeon thought that this was an acute hepatitis feature and not an acute gallbladder problem. Patient was therefore admitted to be managed for acute hepatitis of unclear etiology. She was hydrated with IV fluids. Hepatitis B screen done showed positive hepatitis B surface antigen. She was also screened for HIV for coinfection and this also came back positive. Diagnosis was therefore acute hepatitis B infection with HIV infection which is likely sexually transmitted as patient had recently had a partner who was an IV drug user. Infectious disease was consulted and STD panel was negative for chlamydia, gonorrhea and syphilis. Hepatitis B IgM antibody was positive showing that this was a chronic infection. However hepatitis C antigen was also positive. Patient was started on tenofovir/emtricitabine as well as ratelgravir for HIV. Tenofovir could also be used to treat the hepatitis B infection. Patient's bilirubin and liver enzymes initially trended down but started trending up slightly. However his symptoms improved markedly and she felt much better. On 03/15/2021, patient wanted to go home. Bilirubin was 8.5 but she was completely asymptomatic. I called her primary care doctor Dr. Feldman on phone and discussed with him about patient's asymptomatic hepatitis B infection and evidence of acute liver injury. I did explain to him there was no evidence of fulminant liver failure as patient's INR had been normal and she had remained pretty stable throughout admission. I discussed with him the patient will need to be referred to gastroenterology on outpatient basis and would also need follow-up labs on 03/16/2021 to continue trending her liver enzymes. She was discharged home on tenofovir/emtricitabine and raltegravir. She is to follow up with her PCP and was referred to gastroenterology on outpatient basis. Patient seen and examined prior to discharge. She felt much better, was tolerating a diet and had no abdominal pain. Review of systems was otherwise negative. She has remained hemodynamically stable. Labs and vitals reviewed. Home medications reviewed and reconciled. Of note, her cardizem was discontinued due to its hepatotoxic side effects. Patient was started on metoprolol 25mg daily. She is to follow up with her PCP on 03/16/2021. Physical Exam Const alert, oriented x3 and no apparent distress General Appearance: cooperative and comfortable Exam Limitations: no limitations Nutritional Appearance: obese HEENT normocephalic, head/scalp atraumatic, hearing grossly normal bilaterally and moist oral mucous membranes Eyes PERRL, EOMs intact bilaterally and conjunctivae normal Eyes Narrative: jaundiced sclera, which is improving Neck no lymphadenopathy Resp normal respiratory effort, no retractions, no use of accessory muscles and clear to auscultation bilaterally Cardio regular rate, regular rhythm, S1 normal heart sound, S2 normal heart sound and no murmurs GI normal to inspection, nondistended, normoactive bowel sounds, soft to palpation, non-tender and non-distended GI Narrative: no tenderness at all. No hepatomegaly. Extremity normal to inspection, full ROM and no clubbing, cyanosis or edema Skin no rashes or lesions noted Skin Narrative: has tinge of jaundice to skin. Neuro oriented x3, CN's II-XII intact bilaterally and moves all extremities Sensorium / Orientation: awake and alert Psych affect normal Medical Records Data Medical Nutrition Assessment Dietitian: Nutrition Therapy Diagnosis Start: 03/13/21 15:21 Freq: Status: Active Protocol: Document 03/13/21 15:34 RENETTA (Rec: 03/13/21 15:34 RENETTA [id number]) Nutrition Malnutrition Evidence of Malnutrition Exists No Intake Problem Inadequate Oral Intake Etiology related to nausea and abd pain x 2 wks prior to adm Signs/Symptoms as evidenced by pt self report of only so so appetite. Status Active Problem Clinical Problem Altered Nutrient-Related Laboratory Values Etiology related to liver/cardiac dysfunction Signs/Symptoms as evidenced by AST 1950, ALT 2705, Alk phos 669, leonel 344, LDL 285, VLDL 49, HDL 10 Status Active Problem Recommendation Dietitian Recommendations/Changes Will change diet to Cardiac Will provide diet education prior to d/c as warranted by pt. Weight / BMI Weight Weight: 189 lb 9.561 oz Body Mass Index (BMI) 32.3 ABG / Lab / Microbiology Data Result Diagrams: 03/15/21 05:29 03/15/21 05:29 Laboratory: Laboratory Results - last 24 hr 03/13/21 07:05: Hepatitis Be Antibody Positive H, Hepatitis Be Antigen Positive H 03/15/21 05:29: WBC 9.6, RBC 4.18 L, Hgb 12.2, Hct 35.4 L, MCV 84.7, MCH 29.2, MCHC 34.5, RDW Std Deviation 54.4 H, RDW Coeff of Kaitlin 18.7 H, Plt Count 478 H, MPV 10.3, Immature Gran % (Auto) 0.500, Neut % (Auto) 74.4 H, Lymph % (Auto) 14.2 L, [place] % (Auto) 9.3, Eos % (Auto) 1.5, Baso % (Auto) 0.1, Absolute Neuts (auto) 7.1, Absolute Lymphs (auto) 1.36, Nucleated RBC % 0 03/15/21 05:29: Sodium 137, Potassium 3.7, Chloride 105, Carbon Dioxide 25.0, Anion Gap 7, BUN 6 L, Creatinine 0.63, Estim Creat Clear Calc 85.08, Est GFR (MDRD) Af Amer 125, Est GFR (MDRD) Non-Af 103, BUN/Creatinine Ratio 9.5 L, Glucose 90, Calcium 8.4 L, Total Bilirubin 8.50 H, AST 2087 H, ALT 2636 H, Alkaline Phosphatase 629 H, Total Protein 6.8, Albumin 2.5 L, Globulin 4.3 H, Albumin/Globulin Ratio 0.6 L Meaningful Use Info Meaningful Use Diagnoses (Choose all that apply): None applicable Discharge Plan Admission Admit Date/Time: 03/11/21 11:29 Primary Reason for Your Visit: acute hepatitis B infection Attending Provider: Vicki Kohli Primary Care Provider: Darwin Feldman Consulting Providers: Jacky Ruiz Instructions Patient Instructions: Understanding HIV and AIDS, Treating Hepatitis B Virus (HBV), HBV, Discharge Instructions for HIV ..., ED Hepatitis, Viral (Type B), ED HIV-AIDS, New Dx Additional Instructions / Restrictions: Please follow up with Dr Feldman tomorrow for follow up labs to monitor liver enzymes. Please come to the ED or call your PCP immediately if you notice any blood in your stool or urine, or cough up blood, worsening of the jaundiced color of your eyes and skin, and if you have abdominal pain, worsening nausea or vomiting. Discharge Orders/Prescriptions Prescriptions: New metoprolol succinate 25 mg Tablet Extended Release 24 Hr 25 mg PO DAILY Qty: 30 RF: 1 emtricitabine-tenofovir (TDF) [Truvada] 200-300 mg Tablet 1 tab PO QHS Qty: 30 RF: 3 Isentress 400 mg Tablet 400 mg PO BID Qty: 60 RF: 2 Continued fluoxetine 20 MG capsule 20 mg PO DAILY RF: 0 buspirone 15 MG tablet 15 mg PO DAILY RF: 0 bupropion HCl 150 MG tablet extended release 24 hr 150 mg PO DAILY RF: 0 albuterol sulfate 90 mcg/actuation HFA aerosol inhaler 2 puff INHALATION Q6H PRN PRN (Reason: SOB) RF: 0 Discontinued diltiazem HCl 180 MG capsule,extended release 24 hr 180 mg PO DAILY RF: 0 atorvastatin 10 MG tablet 10 mg PO DAILY RF: 0 Referrals / Follow Up: Darwin Feldman DO [Primary Care Provider] - In 1 Day Jacky Ruiz MD [STAFF PHYSICIAN] - Within 2 Weeks Ad Tidwell MD [NON-STAFF] - Within 2 Weeks (call office for appointment) Disposition Disposition (needs filled in before D/C Order can be placed): Home, Self Care Charges/Coding Visit Charges Inpatient E&M: 88591 Disch Hosp
[2021-03-15 12:20] VITALS: BP 170/99; PULSE 75; RESP 18; TEMP 36.8; O2SAT 99
--- NOTE | 2021-03-15 15:29 | CASEMGMT ---
1336- S/w JASMIN Pineda and states that patient to DC with medication Isentress 400mg BID (this is a new medication for patient) and cannot afford co-pay, also her pharmacy will not have the medication until tomorrow. States patient applied for sanitation technician savings coupon and did not qualify. Per her pharmacy [facility] #[phone] (called and s/w pharmacist Simba at 1412) patient has a $350 copay from primary insurance MMO, states her secondary Johnny did not help but actually increased the tan. States a Coupon card without insurance will not help and make it cheaper than her copay. States will get the shipment tomorrow between [phone]. Discussed some alternative medications that appear in patient formulary- this underwriter looked up [facility] drug formulary and all following medications are Tier 4- Sustiva, Genvoya, Abacavir, Abacavir-lamirudine same as Isentress- Tier 4. [facility] retail pharmacy not open today to inquire if patient would qualify for [facility] medication assistance program. RNCM to f/u tomorrow to see if patient qualifies for [facility] medication assistance, Tier reduction auth with insurance, or other medication assistance program. Updated JASMIN Esparza. KAMILA Ricks
[2021-03-15 15:40] VITALS: BP 138/82; PULSE 71; RESP 18; TEMP 36.8; O2SAT 97
--- NOTE | 2021-03-15 16:33 | PN.HOSP_ITS ---
Subjective Subjective Patient seen and examined. She felt much better today and had no complaints. Review of systems is otherwise negative. Liver enzymes had trended upwards a bit some more today, with total bilirubin of 8.5 and AST and ALT had trended upwards a bit also. She has remained hemodynamically stable. Objective Data Objective Data Vital Signs: Vital Signs Temp Pulse Resp BP Pulse Ox 98.3 F 71 18 138/82 H 97 03/15/21 15:40 03/15/21 15:40 03/15/21 15:40 03/15/21 15:40 03/15/21 15:40 Oxygen Delivery Method Room Air Weight: 189 lb 9.561 oz Body Mass Index (BMI) 32.3 Intake & Output: Intake and Output for Last 24 Hours 03/13/21 03/14/21 03/15/21 23:59 23:59 23:59 Intake Total 4042.08 / 4342.08 3227.08 / 3227.08 1920.83 / 1920.83 Output Total 1100 / 1100 Balance 2942.08 / 3242.08 3227.08 / 3227.08 1920.83 / 1920.83 Medical Nutrition Assessment Dietitian: Nutrition Therapy Diagnosis Start: 03/13/21 15:21 Freq: Status: Active Protocol: Document 03/13/21 15:34 RENETTA (Rec: 03/13/21 15:34 RENETTA [id number]) Nutrition Malnutrition Evidence of Malnutrition Exists No Intake Problem Inadequate Oral Intake Etiology related to nausea and abd pain x 2 wks prior to adm Signs/Symptoms as evidenced by pt self report of only so so appetite. Status Active Problem Clinical Problem Altered Nutrient-Related Laboratory Values Etiology related to liver/cardiac dysfunction Signs/Symptoms as evidenced by AST 1950, ALT 2705, Alk phos 669, leonel 344, LDL 285, VLDL 49, HDL 10 Status Active Problem Recommendation Dietitian Recommendations/Changes Will change diet to Cardiac Will provide diet education prior to d/c as warranted by pt. Lab / Micro Data Result Diagrams: 03/15/21 05:29 03/15/21 05:29 Labs: Laboratory Results - last 24 hr 03/13/21 07:05: Hepatitis Be Antibody Positive H, Hepatitis Be Antigen Positive H 03/15/21 05:29: WBC 9.6, RBC 4.18 L, Hgb 12.2, Hct 35.4 L, MCV 84.7, MCH 29.2, MCHC 34.5, RDW Std Deviation 54.4 H, RDW Coeff of Kaitlin 18.7 H, Plt Count 478 H, M PV 10.3, Immature Gran % (Auto) 0.500, Neut % (Auto) 74.4 H, Lymph % (Auto) 14.2 L, [place] % (Auto) 9.3, Eos % (Auto) 1.5, Baso % (Auto) 0.1, Absolute Neuts (auto) 7.1, Absolute Lymphs (auto) 1.36, Nucleated RBC % 0 03/15/21 05:29: Sodium 137, Potassium 3.7, Chloride 105, Carbon Dioxide 25.0, Anion Gap 7, BUN 6 L, Creatinine 0.63, Estim Creat Clear Calc 85.08, Est GFR (MDRD) Af Amer 125, Est GFR (MDRD) Non-Af 103, BUN/Creatinine Ratio 9.5 L, Glucose 90, Calcium 8.4 L, Total Bilirubin 8.50 H, AST 2087 H, ALT 2636 H, Alkaline Phosphatase 629 H, Total Protein 6.8, Albumin 2.5 L, Globulin 4.3 H, Albumin/Globulin Ratio 0.6 L Physical Exam Const alert, oriented x3 and no apparent distress General Appearance: cooperative and comfortable Exam Limitations: no limitations Nutritional Appearance: obese HEENT normocephalic, head/scalp atraumatic, hearing grossly normal bilaterally and moist oral mucous membranes Head and Scalp: normocephalic Eyes PERRL, EOMs intact bilaterally and conjunctivae normal Eyes Narrative: jaundiced sclera, which is improving Neck no lymphadenopathy Resp normal respiratory effort, no retractions, no use of accessory muscles and clear to auscultation bilaterally Cardio regular rate, regular rhythm, S1 normal heart sound, S2 normal heart sound and no murmurs GI normal to inspection, nondistended, normoactive bowel sounds, soft to palpation, non-tender and non-distended GI Narrative: no tenderness at all. No hepatomegaly. Extremity normal to inspection, full ROM and no clubbing, cyanosis or edema Skin no rashes or lesions noted Skin Narrative: has tinge of jaundice to skin. Neuro oriented x3, CN's II-XII intact bilaterally and moves all extremities Sensorium / Orientation: awake and alert Psych affect normal Assessment & Plan Assessment/Plan (1) HIV (human immunodeficiency virus infection): (2) Hepatitis B: (3) Acute hepatitis: PLAN: #Acute viral hepatitis due to hepatitis B infection * hepatitis B surface antigen was positive;hep C antibody negative. * hep B e antigen and antibody positive. * liver enzymes have trended up slightly today, with total bilirubin going up to 8.5 today. Ast and ALT also trended upwards * INR is normal * patient feels much better now; will continue monitoring. * * #HIV infection * preliminary HIV screen positive. Confirmatory test pending * ID on board * CD 4 count and HIV viral load pending * STI screen done and negative for syphilis, chlamydia and Neisserria gonorrhoea * HIV viral load and CD4 count pending * on tenofovir/emtricitabine one tablet qhs and reltegravir 400mg bid * #A. fib: On Cardizem which is on hold due to its hepatotoxic effect. On PO metoprolol 25mg daily #Depression and anxiety: On buspirone and fluoxetine as well as bupropion DVT prophylaxis: SCDs. CODE STATUS: full code * Disposition: * will hold for discharge tomorrow as case management will need to help patient get in an assistance program to help with the cost of her HIV medication. Charges/Coding Visit Charges Inpatient E&M: 28663 Subs Hosp L2
[2021-03-15] MEDS: ALPRAZolam 0.5 MG Tablet 1 MG PO (18:14)
[2021-03-15 20:25] VITALS: BP 142/79; PULSE 70; RESP 16; TEMP 36.7; O2SAT 97
[2021-03-15] MEDS: EMTRICITABINE/TENOFOVIR 1 TABLET TABLET PO (21:12)
[2021-03-16 07:10] LABS: Absolute Lymphocyte Count 1.71 X10^3/uL (0.83-4.51); Basophil# 0.03 X10^3/uL; Basophil% 0.3 % (0-1); Eosinophil# 0.19 X10^3/uL; Eosinophils% 1.9 % (0-5); Hematocrit 35.4 % (37-47); Hemoglobin 12.1 g/dL (12.0-15.0); Lymphocyte # 1.71 X10^3/ul (0.83-4.51); Lymphocyte % 17.4 % (19-41); Mean Corp Hgb Conc 34.2 g/dL (32-36); Mean Corpuscular Hgb 29.2 pg (27.0-32.0); Mean Corpuscular Volume 85.5 fL (81-99); Mean Platelet Vol. 10.3 fl (6.2-12.0); Monocyte# 0.81 X10^3/uL; Monocyte% 8.3 % (0-10); NRBC Flagged by Analyzer 0 % (0-5); Neutrophil # 7.02 X10^3/uL (2.7-7.7); Neutrophil % 71.7 % (47-70); Platelet Count 471 K/mm3 (150-450); RBC Distribution Width CV 19.3 % (11.6-14.6); RBC Distribution Width SD 57.4 fl (35.1-43.9); Red Blood Count 4.14 M/mm3 (4.2-5.4); White Blood Count 9.8 K/mm3 (4.4-11.0)
[2021-03-16 07:58] LABS: ALB/GLOB Ratio 0.7 RATIO (0.9-2.4); AST(SGOT) 2031 U/L (15-37); Alanine Aminotransfer ALT/SGPT 2565 U/L (13-56); Albumin, Serum 2.6 g/dL (3.2-5.0); Alkaline Phosphatase 619 U/L (45-117); Anion Gap 7 (5-15); BUN 9 mg/dL (7-18); BUN/Creat Ratio 13.5 RATIO (10-20); Calcium,Total 8.5 mg/dL (8.5-10.1); Chloride 105 mmol/L (98-107); Creatinine, Serum 0.66 mg/dL (0.55-1.02); EST Glomerular Filtration Rate 97 mL/min (>60); Est Glom Filt Rate - Afr Amer 118 mL/min (>60); Estimated Creatinine Clearance 81.21 ml/min; Globulin 3.9 g/dL (2.2-4.2); Glucose 92 mg/dL (74-106); Potassium 3.5 mmol/L (3.5-5.1); Protein, Total 6.5 g/dL (6.4-8.2); Sodium Level 136 mmol/L (136-145)
[2021-03-16 08:39] VITALS: BP 150/77; PULSE 73; RESP 16; TEMP 36.7; O2SAT 97
[2021-03-16 08:59] VITALS: PULSE 73
[2021-03-16] MEDS: Famotidine 20 MG Tablet 40 MG PO (08:59)
[2021-03-16] MEDS: Metoprolol(XL)Succ 25 MG Tablet PO (08:59)
[2021-03-16] MEDS: buPROPion (XL) 150 MG TABLET.XL PO (08:59)
[2021-03-16] MEDS: FLUoxetine 20 MG Capsule PO (08:59)
--- NOTE | 2021-03-16 09:45 | CASEMGMT ---
Social Work Note SW updated that pt is unable to afford copay for medications. SW reviewed chart. Pt works, has primary and secondary insurance. ABA placed a call to retail pharmacy and spoke with Liss and asked about [facility] medication assistance program. Liss states she doesn't make those decisions, encouraged this worker to call Senior Sales Administrator Kim Burt. ABA placed a call to Senior Sales Administrator Kim Burt and updated her on situation. Kim Burt to call pt's pharmacy [facility]. SW to continue to follow. Maddie Schwartz SENIOR PRODUCT DESIGNER, [employer] REMOVER
--- NOTE | 2021-03-16 09:45 | CASEMGMT ---
JASMIN URIARTE NOTE: Pt screened with [facility] Palliative Care Screening Tool for strata 3, pt did not meet criteria. Jewell WILEYN RN CM
--- NOTE | 2021-03-16 11:07 | PCM.DC.SUM ---
Providers Date of Admission: 03/11/21 Primary Care Physician: Dr. Darwin Feldman, Consultations 03/12/21 07:13 Consult: Infectious Disease Routine Consulting Provider: Jacky Ruiz Reason for Consult: HIV infection and hepatitis B infection EMERGENT Consult: No MD Notified: Yes Date Notified: 03/12/21 Time Notified: 10:11 Method of Notification: Verbal Reason For Visit: ACUTE HEPATITIS Diagnosis Discharge Diagnosis (1) HIV (human immunodeficiency virus infection): Status: Acute Code(s): B20 - Human immunodeficiency virus [HIV] disease (2) Hepatitis B: Status: Acute Code(s): B19.10 - Unspecified viral hepatitis B without hepatic coma (3) Acute hepatitis: Status: Acute Code(s): B17.9 - Acute viral hepatitis, unspecified Medications at Discharge Home Medications bupropion HCl 150 mg PO DAILY 02/17/20 buspirone 15 mg PO DAILY 02/17/20 fluoxetine 20 mg PO DAILY 02/17/20 albuterol sulfate 2 puff INHALATION Q6H PRN PRN 03/11/21 alprazolam 1 mg PO DAILY PRN 03/15/21 metoprolol succinate 25 mg PO DAILY #30 tab 03/15/21 [id number]-tktxzhy ala [Biktarvy] 1 tab PO DAILY #30 tab 03/16/21 Hospital Course Operations None Summary of Care Provided Minutes Spent on Discharge: 45 Hospital Course: NIEVES RAMEY, is a 55 F who presented via the ED on 03/11/2021 with a complaint of abdominal pain, nausea and vomiting. SHe had been having these symptoms for about a week, with associated decreased appetite. Abdominal pain was episodic, and occurred in her right upper quadrant whne it did occur. She saw her PCp 2 days ago, and had bloodwork done. Her PCP called her today that her liver enzymes were markedly elevated, so she was asked to come in to the ED. She does not have a history of any gallbladder problems and does not have a history of any hepatitis or any other liver pathology. She denied any recent alcohol use and denied any fever or chills. She ate a yogurt about this morning which seemed to cause her symptoms to flareup. Review of systems otherwise negative. Vitals in the ED showed blood pressure of 118/81, pulse rate of 87 and respiratory rate of 17 with temperature of 97.9 and she was saturating at 96% on room air. CBC showed hemoglobin of 12.7 with WBC of 10.2 and platelets of 433. Chemistry showed sodium of 137 and creatinine of 0.96. Total bilirubin was 5.4 and AST was 2077, ALT was 2927 and ALP was 735. Lipase was 65. Gallbladder ultrasound showed hepatomegaly and diffusely thickened gallbladder wall with mild degree of pericholecystic fluid and findings suggestive of a gallbladder polyp. Per ED physician, he spoke to general surgery and general surgeon thought that this was an acute hepatitis feature and not an acute gallbladder problem. Patient was therefore admitted to be managed for acute hepatitis of unclear etiology. She was hydrated with IV fluids. Hepatitis B screen done showed positive hepatitis B surface antigen. She was also screened for HIV for coinfection and this also came back positive. Diagnosis was therefore acute hepatitis B infection with HIV infection which is likely sexually transmitted as patient had recently had a partner who was an IV drug user. Infectious disease was consulted and STD panel was negative for chlamydia, gonorrhea and syphilis. Hepatitis B IgM antibody was positive showing that this was a chronic infection. However hepatitis C antigen was also positive. Patient was started on tenofovir/emtricitabine as well as ratelgravir for HIV. Patient's bilirubin and liver enzymes initially trended down but started trending up slightly. However her symptoms improved markedly and she felt much better. On 03/15/2021, patient wanted to go home. Bilirubin was 8.5 but she was completely asymptomatic. I called her primary care doctor Dr. Feldman on phone and discussed with him about patient's asymptomatic hepatitis B infection and evidence of acute liver injury. I did explain to him there was no evidence of fulminant liver failure as patient's INR had been normal and she had remained pretty stable throughout admission. I discussed with him the patient will need to be referred to gastroenterology on outpatient basis and would also need follow-up labs on 03/16/2021 to continue trending her liver enzymes. Discharge was however held in order to clarify medication assistance for the antiretrovirals. Patient was discharged home on Biktarvy one tablet qhs. Patient was counseled to notify her previous partner so he can also get tested at the [facility]. daily Patient seen and examined prior to discharge. She felt much better, was tolerating a diet and had no abdominal pain. Review of systems was otherwise negative. She has remained hemodynamically stable. Labs and vitals reviewed. Home medications reviewed and reconciled. Of note, her cardizem was discontinued due to its hepatotoxic side effects. Patient was started on metoprolol 25mg daily. She is to follow up with her PCP on Tuesday03/17/2021. Physical Exam Const alert, oriented x3 and no apparent distress General Appearance: cooperative and comfortable Exam Limitations: no limitations Nutritional Appearance: obese HEENT normocephalic, head/scalp atraumatic, hearing grossly normal bilaterally and moist oral mucous membranes Eyes PERRL, EOMs intact bilaterally and conjunctivae normal Eyes Narrative: jaundiced sclera, which is improving Neck no lymphadenopathy Resp normal respiratory effort, no retractions, no use of accessory muscles and clear to auscultation bilaterally Cardio regular rate, regular rhythm, S1 normal heart sound, S2 normal heart sound and no murmurs GI normal to inspection, nondistended, normoactive bowel sounds, soft to palpation, non-tender and non-distended GI Narrative: no tenderness at all. No hepatomegaly. Extremity normal to inspection, full ROM and no clubbing, cyanosis or edema Skin no rashes or lesions noted Skin Narrative: has tinge of jaundice to skin. Neuro oriented x3, CN's II-XII intact bilaterally and moves all extremities Sensorium / Orientation: awake and alert Psych affect normal Medical Records Data Medical Nutrition Assessment Dietitian: Malnutrition Criteria Met Start: 03/13/21 15:21 Freq: Status: Active Protocol: Document 03/13/21 15:34 RENETTA (Rec: 03/13/21 15:34 [facility] [id number]) Nutrition Malnutrition Evidence of Malnutrition Exists No Intake Problem Inadequate Oral Intake Etiology related to nausea and abd pain x 2 wks prior to adm Signs/Symptoms as evidenced by pt self report of only so so appetite. Status Active Problem Clinical Problem Altered Nutrient-Related Laboratory Values Etiology related to liver/cardiac dysfunction Signs/Symptoms as evidenced by AST 1950, ALT 2705, Alk phos 669, leonel 344, LDL 285, VLDL 49, HDL 10 Status Active Problem Recommendation Dietitian Recommendations/Changes Will change diet to Cardiac Will provide diet education prior to d/c as warranted by pt. Weight / BMI Weight Weight: 189 lb 9.561 oz Body Mass Index (BMI) 32.3 ABG / Lab / Microbiology Data Result Diagrams: 03/16/21 06:20 03/16/21 06:20 Laboratory: Laboratory Results - last 24 hr 03/16/21 06:20: WBC 9.8, RBC 4.14 L, Hgb 12.1, Hct 35.4 L, MCV 85.5, MCH 29.2, MCHC 34.2, RDW Std Deviation 57.4 H, RDW Coeff of Kaitlin 19.3 H, Plt Count 471 H, MPV 10.3, Immature Gran % (Auto) 0.400, Neut % (Auto) 71.7 H, Lymph % (Auto) 17.4 L, [place] % (Auto) 8.3, Eos % (Auto) 1.9, Baso % (Auto) 0.3, Absolute Neuts (auto) 7.0, Absolute Lymphs (auto) 1.71, Nucleated RBC % 0 03/16/21 06:20: Sodium 136, Potassium 3.5, Chloride 105, Carbon Dioxide 24.0, Anion Gap 7, BUN 9, Creatinine 0.66, Estim Creat Clear Calc 81.21, Est GFR (MDRD) Af Amer 118, Est GFR (MDRD) Non-Af 97, BUN/Creatinine Ratio 13.5, Glucose 92, Calcium 8.5, Total Bilirubin 8.30 H, AST 2031 H, ALT 2565 H, Alkaline Phosphatase 619 H, Total Protein 6.5, Albumin 2.6 L, Globulin 3.9, Albumin/Globulin Ratio 0.7 L D/C Instructions Discharge Diet: Low fat / Low cholesterol Discharge Activity: Return to Normal Activity Call your doctor if you observe: Fever of 101 or Higher and - (worsening abdominal pain, jaundice, confusion) Meaningful Use Info Meaningful Use Diagnoses (Choose all that apply): None applicable Discharge Plan Admission Admit Date/Time: 03/11/21 11:29 Primary Reason for Your Visit: acute hepatitis B infection Attending Provider: Vicki Kohli Primary Care Provider: Darwin Feldman Consulting Providers: Jacky Ruiz Instructions Patient Instructions: Understanding HIV and AIDS, Treating Hepatitis B Virus (HBV), HBV, Discharge Instructions for HIV ..., ED Hepatitis, Viral (Type B), ED HIV-AIDS, New Dx Additional Instructions / Restrictions: Please follow up with Dr Feldman tomorrow for follow up labs to monitor liver enzymes. Please come to the ED or call your PCP immediately if you notice any blood in your stool or urine, or cough up blood, worsening of the jaundiced color of your eyes and skin, and if you have abdominal pain, worsening nausea or vomiting. Discharge Orders/Prescriptions Prescriptions: New metoprolol succinate 25 mg Tablet Extended Release 24 Hr 25 mg PO DAILY Qty: 30 RF: 1 Biktarvy 50-200-25 mg tablet 1 tab PO DAILY Qty: 30 RF: 2 Continued fluoxetine 20 MG capsule 20 mg PO DAILY RF: 0 buspirone 15 MG tablet 15 mg PO DAILY RF: 0 bupropion HCl 150 MG tablet extended release 24 hr 150 mg PO DAILY RF: 0 albuterol sulfate 90 mcg/actuation HFA aerosol inhaler 2 puff INHALATION Q6H PRN PRN (Reason: SOB) RF: 0 Discontinued diltiazem HCl 180 MG capsule,extended release 24 hr 180 mg PO DAILY RF: 0 atorvastatin 10 MG tablet 10 mg PO DAILY RF: 0 No Action alprazolam 1 mg tablet 1 mg PO DAILY PRN (Reason: Anxiety) RF: 0 Referrals / Follow Up: Darwin Feldman DO [Primary Care Provider] - In 1 Day Jacky Ruiz MD [STAFF PHYSICIAN] - Within 2 Weeks Ad Tidwell MD [NON-STAFF] - Within 2 Weeks (call office for appointment) Disposition Disposition (needs filled in before D/C Order can be placed): Home, Self Care Charges/Coding Visit Charges Inpatient E&M: 11309 Disch Hosp
--- NOTE | 2021-03-16 12:09 | CASEMGMT ---
RN CM Follow-up re: prescription costs: Confirmed with Rani at [employer] [facility] [place] that pt's co-pay for Isentress is $354 and that a prior authorization has not been requested by pt's insurance. This RN CM spoke with Nikky at Dr. Ruiz's office who states there are not any additional programs available for financial assistance if pt does not qualify for the drug company's program. The co-pay for Truvada is $98.77. This RN CM cortexted Dr. Ruiz re: alternative therapy. He stated he recommended Biktarvy instead of Isentress. Notified Dr. Kohli who obtained clarification from Dr. Ruiz and has updated discharged instructions to include Biktarvy only. Dr. Tubbs also stated his office has samples of this drug and recommended pt get enrolled at [employer] for further co-pay assistance and support. This RN CM contacted [facility] for further specification re: [facility]. [facility] provided the phone number and contact name of Jacky Luxeker. Nikky explained this program provides financial assistance and psychosocial support. This RN CM met with pt [id number] regarding above. 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 Notified Dr. Ruiz who instructed for pt to receive doses of Isentress and Truvada prior to DC and then start the Biktarvy tomorrow night after obtaining the samples. Discussed with pt and pt's nurse JASMIN Zavaleta at bedside. 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 and to obtain samples at Dr. Ruiz's office. Confirmed pt has the office's address. Provided pt with contact information for [employer] and explained their role for supportive services. Pt agreeable. Pt denies further questions or concerns at this time. Kim Burt RN CM
[2021-03-16] MEDS: busPIRone 15 MG TABLET PO (12:11)
[2021-03-16] MEDS: RALTEGRAVIR POTASSIUM 400 MG TABLET PO (12:11)
[2021-03-16] MEDS: EMTRICITABINE/TENOFOVIR 1 TABLET TABLET PO (12:12)
--- NOTE | 2021-03-17 13:07 | CASEMGMT ---
JASMIN URIARTE Discharge Follow-up Phone Call: CELSO: 12 Strata: 3 Call Date: 03/16/21 Discharge Date: 03/15/21 Time of Call: [id number] Duration: 1 min Admitting Diagnosis: Acute Hepatitis RN KALANI attempted to complete follow-up phone call after recent hospitalization. No answer, voice message left with return contact information.
[2021-03-19 03:07] LABS: Absolute CD4 Helper 696 /uL (359-1519); Basophils (Absolute) 0 x10E3/uL (0.0-0.2); Eosinophils 1 % (Not Estab.); Eosinophils (Absolute) 0.1 x10E3/uL (0.0-0.4); Hematocrit 34.5 % (34.0-46.6); Hemoglobin 12.3 g/dL (11.1-15.9); Immature Granulocytes 1 % (Not Estab.); Immature Granulocytes Absolute 0.1 x10E3/uL (0.0-0.1); Lymphs 16 % (Not Estab.); Lymphs (Absolute) 1.4 x10E3/uL (0.7-3.1); MCH 29.7 pg (26.6-33.0); MCHC 35.7 g/dL (31.5-35.7); MCV 83 fL (79-97); Monocytes 8 % (Not Estab.); Monocytes (Absolute) 0.7 x10E3/uL (0.1-0.9); Neutrophils 74 % (Not Estab.); Neutrophils (Absolute) 6.6 x10E3/uL (1.4-7.0); Percent % CD4 Pos. Lymph. 49.7 % (30.8-58.5); Platelets 459 x10E3/uL (150-450); QNTFERON TB Mitogen Value > 10.00 IU/mL (.); QNTFERON TB Nil Value 0.01 IU/mL (.); QNTFERON TB1+ Ag Value 0.01 IU/mL (.); QNTFERON TB2+ Ag Value 0.01 IU/mL (.); RBC Count 4.14 x10E6/uL (3.77-5.28); RDW 15.4 % (11.7-15.4); WBC Count 8.9 x10E3/uL (3.4-10.8)
[2021-03-19 12:27] LABS: QNTIFERON TB Positive Criteria Negative (Negative)
== END 2021-03-16 13:09 | disposition home or self-care (01) | DRG 442 ==
LOC: ED 10:53 → MS3 14:21
PROVIDERS: Internal Medicine Infectious Disease; Admitting Provider Student in an Organized Health Care Education/Training Program; Emergency Provider Emergency Medicine; PCP Family Medicine; Visit Provider Student in an Organized Health Care Education/Training Program
DX: B16.9 Acute hepatitis B without delta-agent and without hepatic coma (principal); B20 Human immunodeficiency virus [HIV] disease; I48.91 Unspecified atrial fibrillation; F32.9 Major depressive disorder, single episode, unspecified; F41.9 Anxiety disorder, unspecified; Z79.899 Other long term (current) drug therapy; Z86.16 Personal history of COVID-19; K21.9 Gastro-esophageal reflux disease without esophagitis; I10 Essential (primary) hypertension; E78.5 Hyperlipidemia, unspecified
CPT/HCPCS: 36415; 76705; 80053; 80061; 80076; 80329; 82728; 83540; 83550; 83690; 85025; 85610; 86361; 86480; 86703; 86705; 86706; 86707; 86708; 86709; 86780; 86803; 87340; 87350; 87491; 87536; 87591; 96361; 96374; 96375; 96376; 99218; 99284; J7030; A4216; G0378; G0480; J2405

== ENCOUNTER → 2021-03-31 16:01 | Outpatient (CLI) | payer BC, SELFPAY ==
[2021-03-31 17:46] LABS: Hematocrit 39.7 % (37-47); Hemoglobin 13.8 g/dL (12.0-15.0); Mean Corp Hgb Conc 34.8 g/dL (32-36); Mean Corpuscular Hgb 29.2 pg (27.0-32.0); Mean Corpuscular Volume 83.9 fL (81-99); Mean Platelet Vol. 11.1 fl (6.2-12.0); POSITIVE MORPHOLOGY YES; Platelet Count 410 K/mm3 (150-450); RBC Distribution Width CV 24.5 % (11.6-14.6); RBC Distribution Width SD 71.9 fl (35.1-43.9); Red Blood Count 4.73 M/mm3 (4.2-5.4); White Blood Count 9.2 K/mm3 (4.4-11.0)
[2021-03-31 17:51] LABS: Scan Indicated on CBC? Y/N YES- FLAGS NOTED
[2021-03-31 17:58] LABS: International Normalized Ratio 1.3; Prothrombin Time (Protime)PT. 15.4 SECONDS (11.7-14.9)
[2021-03-31 17:59] LABS: Partial Thromboplast Time 40.5 Seconds (24.1-36.2)
[2021-03-31 18:12] LABS: Differential Comment SCANNED
[2021-03-31 18:18] LABS: AST(SGOT) 1708 U/L (15-37); Alanine Aminotransfer ALT/SGPT 1441 U/L (13-56); Albumin, Serum 2.8 g/dL (3.2-5.0); Alkaline Phosphatase 507 U/L (45-117); GGTP 1090 U/L (5-55); Globulin 4.5 g/dL (2.2-4.2); Protein, Total 7.3 g/dL (6.4-8.2)
== END ==
PROVIDERS: PCP Family Medicine; Referring Provider Internal Medicine Gastroenterology; Visit Provider Internal Medicine Gastroenterology
DX: B19.10 Unspecified viral hepatitis B without hepatic coma (principal)
CPT/HCPCS: 36415; 80076; 82977; 85027; 85610; 85730

== ENCOUNTER → 2021-04-15 14:05 | Outpatient (CLI) | payer BC, OTHER, SELFPAY ==
[2021-04-15 15:54] LABS: Absolute Lymphocyte Count 1.94 X10^3/uL (0.83-4.51); Absolute Neutrophil Count 5.5 X10^3/uL (2.0-7.7); Basophil# 0.03 X10^3/uL; Basophil% 0.4 % (0-1); Eosinophil# 0.17 X10^3/uL; Eosinophils% 2.1 % (0-5); Hematocrit 43.4 % (37-47); Hemoglobin 14.5 g/dL (12.0-15.0); Lymphocyte # 1.94 X10^3/ul (0.83-4.51); Lymphocyte % 23.4 % (19-41); Mean Corp Hgb Conc 33.4 g/dL (32-36); Mean Corpuscular Hgb 30.5 pg (27.0-32.0); Mean Corpuscular Volume 91.4 fL (81-99); Monocyte% 7.2 % (0-10); NRBC Flagged by Analyzer 0 % (0-5); Neutrophil # 5.52 X10^3/uL (2.7-7.7); Neutrophil % 66.7 % (47-70); POSITIVE MORPHOLOGY YES; Platelet Count 307 K/mm3 (150-450); RBC Distribution Width CV 21.2 % (11.6-14.6); RBC Distribution Width SD 70.5 fl (35.1-43.9); Red Blood Count 4.75 M/mm3 (4.2-5.4); White Blood Count 8.3 K/mm3 (4.4-11.0)
[2021-04-15 16:18] LABS: ALB/GLOB Ratio 0.6 RATIO (0.9-2.4); AST(SGOT) 349 U/L (15-37); Alanine Aminotransfer ALT/SGPT 431 U/L (13-56); Alkaline Phosphatase 250 U/L (45-117); Anion Gap 7 (5-15); BUN 11 mg/dL (7-18); BUN/Creat Ratio 12.1 RATIO (10-20); Calcium,Total 9.3 mg/dL (8.5-10.1); Chloride 103 mmol/L (98-107); Cholesterol 335 mg/dL (200); Creatinine, Serum 0.91 mg/dL (0.55-1.02); EST Glomerular Filtration Rate 68 mL/min (>60); Est Glom Filt Rate - Afr Amer 82 mL/min (>60); Globulin 4.7 g/dL (2.2-4.2); Glucose 78 mg/dL (74-106); High Density Lipoprotein 29 mg/dL; Potassium 3.6 mmol/L (3.5-5.1); Protein, Total 7.7 g/dL (6.4-8.2); Sodium Level 137 mmol/L (136-145); Triglycerides 190 mg/dL; Very Low Density Lipoprotein 38 mg/dL (5-40)
[2021-04-15 16:31] LABS: Differential Indicated SCAN CRITERIA MET
[2021-04-15 17:06] LABS: Anisocytosis 1+; Differential Comment SCANNED
[2021-04-15 17:07] LABS: Microcytosis 1+
[2021-04-17 16:09] LABS: Absolute CD4 Helper 875 /uL (359-1519); Basophils (Absolute) 0 x10E3/uL (0.0-0.2); Eosinophils 2 % (Not Estab.); Eosinophils (Absolute) 0.1 x10E3/uL (0.0-0.4); Hemoglobin 14.3 g/dL (11.1-15.9); Immature Granulocytes 0 % (Not Estab.); Immature Granulocytes Absolute 0 x10E3/uL (0.0-0.1); Lymphs 23 % (Not Estab.); Lymphs (Absolute) 1.8 x10E3/uL (0.7-3.1); MCH 29.6 pg (26.6-33.0); MCHC 33.3 g/dL (31.5-35.7); MCV 89 fL (79-97); Monocytes 7 % (Not Estab.); Monocytes (Absolute) 0.5 x10E3/uL (0.1-0.9); Neutrophils 67 % (Not Estab.); Neutrophils (Absolute) 5.2 x10E3/uL (1.4-7.0); Percent % CD4 Pos. Lymph. 48.6 % (30.8-58.5); Platelets 306 x10E3/uL (150-450); RBC Count 4.83 x10E6/uL (3.77-5.28); RDW 19.1 % (11.7-15.4); WBC Count 7.7 x10E3/uL (3.4-10.8)
[2021-04-18 09:15] LABS: HIV-1 RNA by PCR, Quant. < 20 copies/mL (.)
== END ==
PROVIDERS: PCP Family Medicine; Referring Provider Internal Medicine Infectious Disease; Visit Provider Internal Medicine Infectious Disease
DX: B20 Human immunodeficiency virus [HIV] disease (principal)
CPT/HCPCS: 36415; 80053; 80061; 85025; 86361; 87536

== ENCOUNTER → 2021-06-04 07:47 | Outpatient (CLI) | payer BC, SELFPAY ==
[2021-06-04 08:58] LABS: Hematocrit 45.3 % (37-47); Hemoglobin 15.4 g/dL (12.0-15.0); Mean Corpuscular Hgb 31.4 pg (27.0-32.0); Mean Corpuscular Volume 92.3 fL (81-99); Mean Platelet Vol. 10.1 fl (6.2-12.0); Platelet Count 239 K/mm3 (150-450); RBC Distribution Width CV 13.2 % (11.6-14.6); RBC Distribution Width SD 44.7 fl (35.1-43.9); Red Blood Count 4.91 M/mm3 (4.2-5.4); White Blood Count 6.4 K/mm3 (4.4-11.0)
[2021-06-04 10:10] LABS: AST(SGOT) 34 U/L (15-37); Alanine Aminotransfer ALT/SGPT 52 U/L (13-56); Albumin, Serum 3.7 g/dL (3.2-5.0); Alkaline Phosphatase 115 U/L (45-117); Anion Gap 7 (5-15); BUN 14 mg/dL (7-18); BUN/Creat Ratio 14.6 RATIO (10-20); Bilirubin, Direct 0.26 mg/dL (0.00-0.30); Calcium,Total 9.4 mg/dL (8.5-10.1); Chloride 105 mmol/L (98-107); Creatinine, Serum 0.96 mg/dL (0.55-1.02); EST Glomerular Filtration Rate 64 mL/min (>60); Est Glom Filt Rate - Afr Amer 77 mL/min (>60); Glucose 90 mg/dL (74-106); Protein, Total 7.7 g/dL (6.4-8.2); Sodium Level 140 mmol/L (136-145)
[2021-06-04 13:27] LABS: Hepatitis B Surface Antibody Non-Reactive
[2021-06-04 14:05] LABS: Hepatitis B Surface Antigen REACTIVE (Nonreactive)
[2021-06-05 15:08] LABS: Hepatitis Be Ab Positive (Negative); Hepatitis Be Ag Negative (Negative)
[2021-06-05 15:49] LABS: Hepatitis B Core Ab Total Positive (Negative)
== END ==
PROVIDERS: PCP Family Medicine; Referring Provider Internal Medicine Infectious Disease; Visit Provider Internal Medicine Infectious Disease
DX: B16.9 Acute hepatitis B without delta-agent and without hepatic coma (principal)
CPT/HCPCS: 36415; 80048; 80076; 85027; 86704; 86706; 86707; 87340; 87350

== ENCOUNTER → 2021-06-10 10:44 | Outpatient (CLI) | payer BC, SELFPAY | PROVIDERS: PCP Family Medicine; Referring Provider Internal Medicine Gastroenterology; Visit Provider Internal Medicine Gastroenterology | DX: B18.1 Chronic viral hepatitis B without delta-agent (principal) | CPT/HCPCS: 36415 ==

== ENCOUNTER 2021-11-04 15:29 | Outpatient (CLI) | payer BC, SELFPAY ==
[2021-11-04 16:26] LABS: Hematocrit 44.8 % (37-47); Hemoglobin 15.1 g/dL (12.0-15.0); Mean Corp Hgb Conc 33.7 g/dL (32-36); Mean Corpuscular Hgb 30.4 pg (27.0-32.0); Mean Corpuscular Volume 90.1 fL (81-99); Mean Platelet Vol. 9.7 fl (6.2-12.0); Platelet Count 296 K/mm3 (150-450); RBC Distribution Width CV 12.5 % (11.6-14.6); RBC Distribution Width SD 41.5 fl (35.1-43.9); Red Blood Count 4.97 M/mm3 (4.2-5.4); White Blood Count 9.1 K/mm3 (4.4-11.0)
[2021-11-04 16:58] LABS: AST(SGOT) 18 U/L (15-37); Alanine Aminotransfer ALT/SGPT 30 U/L (13-56); Alkaline Phosphatase 96 U/L (45-117); Anion Gap 5 (5-15); BUN 19 mg/dL (7-18); BUN/Creat Ratio 17.6 RATIO (10-20); Calcium,Total 9.3 mg/dL (8.5-10.1); Chloride 109 mmol/L (98-107); Creatinine, Serum 1.08 mg/dL (0.55-1.02); EST Glomerular Filtration Rate 55 mL/min (>60); Est Glom Filt Rate - Afr Amer 67 mL/min (>60); Globulin 3.7 g/dL (2.2-4.2); Glucose 92 mg/dL (74-106); Potassium 4.1 mmol/L (3.5-5.1); Protein, Total 7.7 g/dL (6.4-8.2); Sodium Level 139 mmol/L (136-145)
[2021-11-05 08:43] LABS: Hepatitis B Surface Antibody Reactive; Hepatitis B Surface Antigen Non-Reactive (Nonreactive)
[2021-11-10 12:00] LABS: Hepatitis Be Ab Positive (Negative); Hepatitis Be Ag Negative (Negative)
[2021-11-12 16:27] LABS: Hepatitis B Core Ab Total Positive (Negative)
== END 2021-11-04 23:59 | disposition home or self-care (01) ==
PROVIDERS: PCP Family Medicine; Visit Provider Internal Medicine Infectious Disease
DX: B16.9 Acute hepatitis B without delta-agent and without hepatic coma (principal)
CPT/HCPCS: 36415; 80048; 80076; 85027; 86704; 86706; 86707; 87340; 87350

== ENCOUNTER → 2022-06-08 | Outpatient (CLI) | payer BC, SELFPAY ==
[2022-06-08 13:02] LABS: Absolute Lymphocyte Count 2.45 X10^3/uL (0.83-4.51); Absolute Neutrophil Count 5.5 X10^3/uL (2.0-7.7); Basophil# 0.04 X10^3/uL; Basophil% 0.5 % (0-1); Eosinophil# 0.19 X10^3/uL; Eosinophils% 2.2 % (0-5); Hematocrit 45.1 % (37-47); Hemoglobin 14.7 g/dL (12.0-15.0); Lymphocyte # 2.45 X10^3/ul (0.83-4.51); Lymphocyte % 28.2 % (19-41); Mean Corp Hgb Conc 32.6 g/dL (32-36); Mean Corpuscular Hgb 29.8 pg (27.0-32.0); Mean Corpuscular Volume 91.3 fL (81-99); Mean Platelet Vol. 10.6 fl (6.2-12.0); Monocyte# 0.45 X10^3/uL; Monocyte% 5.2 % (0-10); NRBC Flagged by Analyzer 0 % (0-5); Neutrophil # 5.45 X10^3/uL (2.7-7.7); Neutrophil % 62.7 % (47-70); Platelet Count 300 K/mm3 (150-450); RBC Distribution Width CV 13.1 % (11.6-14.6); Red Blood Count 4.94 M/mm3 (4.2-5.4); White Blood Count 8.7 K/mm3 (4.4-11.0)
[2022-06-08 13:11] LABS: ALB/GLOB Ratio 1.1 RATIO (0.9-2.4); AST(SGOT) 20 U/L (15-37); Alanine Aminotransfer ALT/SGPT 37 U/L (13-56); Albumin, Serum 4.1 g/dL (3.2-5.0); Alkaline Phosphatase 108 U/L (45-117); Anion Gap 6 (5-15); BUN 16 mg/dL (7-18); BUN/Creat Ratio 15.7 RATIO (10-20); Calcium,Total 9.4 mg/dL (8.5-10.1); Chloride 106 mmol/L (98-107); Cholesterol 282 mg/dL (200); Creatinine, Serum 1.02 mg/dL (0.55-1.02); EST Glomerular Filtration Rate 59 mL/min (>60); Est Glom Filt Rate - Afr Amer 71 mL/min (>60); Globulin 3.6 g/dL (2.2-4.2); Glucose 100 mg/dL (74-106); High Density Lipoprotein 70 mg/dL; Potassium 4.7 mmol/L (3.5-5.1); Protein, Total 7.7 g/dL (6.4-8.2); Sodium Level 139 mmol/L (136-145); Triglycerides 172 mg/dL; Very Low Density Lipoprotein 34 mg/dL (5-40)
== END | disposition home or self-care (01) ==
LOC: BFHLAB 09:05
PROVIDERS: PCP Family Medicine; Visit Provider Family Medicine
DX: I10 Essential (primary) hypertension (principal); B19.10 Unspecified viral hepatitis B without hepatic coma; E78.5 Hyperlipidemia, unspecified
CPT/HCPCS: 36415; 80053; 80061; 85025; 85610

== ENCOUNTER → 2024-03-15 | Outpatient (CLI) | payer BC, SELFPAY ==
[2024-03-15 10:08] LABS: Absolute Lymphocyte Count 2.22 X10^3/uL (0.83-4.51); Absolute Neutrophil Count 5.5 X10^3/uL (2.0-7.7); Basophil# 0.04 X10^3/uL; Basophil% 0.5 % (0-1); Eosinophil# 0.19 X10^3/uL; Eosinophils% 2.3 % (0-5); Hematocrit 40.8 % (37-47); Hemoglobin 13.2 g/dL (12.0-15.0); Lymphocyte # 2.22 X10^3/ul (0.83-4.51); Lymphocyte % 26.4 % (19-41); Mean Corp Hgb Conc 32.4 g/dL (32-36); Mean Corpuscular Hgb 28.8 pg (27.0-32.0); Mean Corpuscular Volume 89.1 fL (81-99); Monocyte# 0.47 X10^3/uL; Monocyte% 5.6 % (0-10); NRBC Flagged by Analyzer 0 % (0-5); Neutrophil # 5.46 X10^3/uL (2.7-7.7); Platelet Count 305 K/mm3 (150-450); RBC Distribution Width CV 13.6 % (11.6-14.6); RBC Distribution Width SD 44.2 fl (35.1-43.9); Red Blood Count 4.58 M/mm3 (4.2-5.4); White Blood Count 8.4 K/mm3 (4.4-11.0)
[2024-03-15 10:49] LABS: ALB/GLOB Ratio 1.1 RATIO (0.9-2.4); AST(SGOT) 17 U/L (15-37); Alanine Aminotransfer ALT/SGPT 28 U/L (13-56); Albumin, Serum 3.8 g/dL (3.2-5.0); Alkaline Phosphatase 111 U/L (45-117); Anion Gap 8 (5-15); BUN 15 mg/dL (7-18); BUN/Creat Ratio 16.1 RATIO (10-20); Calcium,Total 9.1 mg/dL (8.5-10.1); Chloride 106 mmol/L (98-107); Cholesterol 278 mg/dL (200); Creatinine, Serum 0.93 mg/dL (0.55-1.02); EST Glomerular Filtration Rate 65 mL/min (>60); Est Glom Filt Rate - Afr Amer 79 mL/min (>60); Globulin 3.5 g/dL (2.2-4.2); Glucose 112 mg/dL (74-106); High Density Lipoprotein 67 mg/dL; Potassium 3.9 mmol/L (3.5-5.1); Protein, Total 7.3 g/dL (6.4-8.2); Sodium Level 140 mmol/L (136-145); Triglycerides 111 mg/dL; Very Low Density Lipoprotein 22 mg/dL (5-40)
[2024-03-15 13:35] LABS: Vitamin D,25 Hydroxy 79.8 ng/mL
[2024-03-19 15:07] LABS: DHEA Sulfate 56.4 ug/dL (29.4-220.5); Testosterone, % Free 2.05 % (0.50-2.80); Testosterone, Free 0.06 ng/dL (0.10-0.85); Testosterone, Total 3 ng/dL (4-50)
== END | disposition home or self-care (01) ==
LOC: MTLAB 08:41
PROVIDERS: PCP Family Medicine; Referring Provider Family Medicine; Visit Provider Family Medicine
DX: Z00.00 Encounter for general adult medical examination without abnormal findings (principal); E55.9 Vitamin D deficiency, unspecified; L65.9 Nonscarring hair loss, unspecified
CPT/HCPCS: 36415; 80053; 80061; 82306; 82627; 84402; 84403; 84443; 85025; 82626